=== PATIENT | female | born 1950 | race Caucasian/White ===

== ENCOUNTER 2017-03-27 21:10 | Emergency (ER) | payer BC, MEDICARE ==
[2017-03-27 21:18] VITALS: BP 136/94; RESP 20; TEMP 98
[2017-03-27] MEDS ORDERED: ORPHENADRINE 30 MG/ML 2 ML VIAL IM STA (21:36)
[2017-03-27] MEDS ORDERED: KETOROLAC 30 MG/ML 1 ML VIAL IM STA (21:36)
[2017-03-27] MEDS ORDERED: HYDROcodone/APAP 5-325MG 1 EACH TAB PO STA (21:36)
--- NOTE | 2017-03-27 21:40 | ED ---
Back Pain HPI - General Chief Complaint: Back Pain/Injury Stated Complaint: Back pain Time Seen by Provider: 03/27/17 21:19 Source: patient Limitations: no limitations - History of Present Illness Initial Comments: 67-year-old female patient presented to the emergency department today for complaints of lower back pain with radiation on the left leg. Patient states that she does have a history of arthritis, degenerative disc disease, and sciatica. States that her symptoms have been noted present for the last 4 months. States that she's been having trouble with sciatica on and off since 2014. She denies any new symptoms. States they're just getting worse. She states that she has been seeing a chiropractor for the last few weeks but it is not helping. She does have an appointment with a pain management and medical insurance coding specialist Dr. Adames on Thursday. States that she does need some pain medication to get her through until then. She denies any numbness or tingling in her legs. Denies any loss of bowel or bladder control. Denies any saddle anesthesia. She denies any injuries causing an increase of the pain. Patient denies any recent rash, fever, chills, shortness breath, chest pain, abdominal pain, nausea, vomiting, diarrhea, constipation, dizziness, weakness, hematuria, dysuria, urinary urgency, urinary frequency, headache, visual changes, or any other complaints. - Related Data Home Medications Medication Instructions Recorded Confirmed Levothyroxine Sodium [Synthroid] 1 tab PO DAILY 12/29/15 12/29/15 Previous Rx's Medication Instructions Recorded Ibuprofen [Motrin] 800 mg PO Q8HR PRN #12 tab 12/29/15 Cyclobenzaprine [Flexeril] 10 mg PO TID #15 tab 03/27/17 Hydrocodone/Acetaminophen [[place] 1 tab PO Q6HR PRN #15 tab 03/27/17 5-325] Allergies Allergy/AdvReac Type Severity Reaction Status Date / Time No Known Allergies Allergy Verified 03/27/17 21:18 Review of Systems ROS Statement: Those systems with pertinent positive or pertinent negative responses have been documented in the HPI. ROS Other: All systems not noted in ROS Statement are negative. Past Medical History Past Medical History: Syncope Additional Past Medical History / Comment(s): arthritis History of Any Multi-Drug Resistant Organisms: None Reported Past Surgical History: Bladder Surgery, Cholecystectomy, Hysterectomy, Orthopedic Surgery, Tonsillectomy Past Psychological History: No Psychological Hx Reported Smoking Status: Current every day smoker Past Alcohol Use History: Rare Past Drug Use History: None Reported General Exam Limitations: no limitations General appearance: alert, in no apparent distress, other (This is a well- developed, well-nourished female patient no acute distress. Vital signs upon presentation were temperature 98.0F, pulse 113, respirations 20, blood pressure 136/94, pulse ox 97% on room air.) Eye exam: Present: normal appearance, PERRL, EOMI. Absent: scleral icterus, conjunctival injection, periorbital swelling Respiratory exam: Present: normal lung sounds bilaterally. Absent: respiratory distress, wheezes, rales, rhonchi, stridor Cardiovascular Exam: Present: regular rate, normal rhythm, normal heart sounds. Absent: systolic murmur, diastolic murmur, rubs, gallop, clicks GI/Abdominal exam: Present: soft, normal bowel sounds. Absent: distended, tenderness, guarding, rebound, rigid Extremities exam: Present: normal inspection, full ROM, normal capillary refill , other (Skin to the lower extremities is pink, warm, and dry. Cap refill less than 3 seconds. Post tibial pulses are 2+ and equal bilaterally. Patient has good strength in the lower extremities 5/5.). Absent: tenderness, pedal edema, joint swelling, calf tenderness Back exam: Present: normal inspection. Absent: vertebral tenderness, rash noted Neurological exam: Present: alert, oriented X3, CN II-XII intact Psychiatric exam: Present: normal affect, normal mood Skin exam: Present: warm, dry, intact, normal color. Absent: rash Course Vital Signs 03/27/17 21:13 Temperature 98 F Pulse Rate 113 H Respiratory 20 Rate Blood Pressure 136/94 O2 Sat by Pulse 97 Oximetry Medical Decision Making - Medical Decision Making 67-year-old female patient presented to the emergency department today for evaluation of low back pain with sciatica to the left side. Physical examination was unremarkable. Neurovascular status was intact. Patient is neurologically intact. She has good strength in her lower extremities. Patient does have a history of chronic low back pain with arthritis, degenerative disc disease, and history of sciatica. She denies any new symptoms. States it hurts current symptoms are consistent with her chronic pain pattern. She does have an appointment with Dr. jimena harvey on Thursday for further evaluation. She will be given IM injections of Toradol, Norflex and [place] orally here in the department. She'll be given a prescription for Flexeril and [place] to get her through until Thursday. She is instructed to return here immediately if her symptoms change, worsen, or if they develop any new symptoms. She verbalizes understanding and agrees with this plan. Disposition Clinical Impression: Sciatica, Chronic low back pain Disposition: HOME SELF-CARE Condition: Good Instructions: Sciatica (ED), Chronic Back Pain (ED) Additional Instructions: Use warm moist heat to the lower back. Take medications as directed. Keep your appointment with Dr. Adames as you have planned. Return here immediately for any new, worsening, or concerning symptoms. Prescriptions: Cyclobenzaprine [Flexeril] 10 mg PO TID #15 tab Hydrocodone/Acetaminophen [[place] 5-325] 1 tab PO Q6HR PRN #15 tab PRN Reason: Pain Referrals: Shane Perry MD [Primary Care Provider] - 1-2 days Stephen Adames MD [STAFF PHYSICIAN] - 1-2 days Time of Disposition: 21:40
[2017-03-27 22:02] VITALS: PULSE 99
== END 2017-03-27 22:03 | disposition home or self-care (01) ==
LOC: EC 21:10
DX: M54.32 Sciatica, left side (principal); M54.5 Low back pain; G89.29 Other chronic pain; F17.200 Nicotine dependence, unspecified, uncomplicated; Z79.899 Other long term (current) drug therapy
CPT/HCPCS: 99283; 96372 ×2; J2360; J1885

== ENCOUNTER → 2017-04-27 | Outpatient (CLI) | payer MEDICARE ==
[2017-04-27 14:19] LABS: Appearance,Urine Cloudy (Clear); Bacteria,Urine Rare /hpf; Bilirubin,Urine Negative (Negative); Blood,Urine Negative (Negative); Color,Urine Yellow; Glucose,Urine (UA) Trace (Negative); Hyaline Casts,Urine 2 /lpf (0-2); Ketones,Urine Negative (Negative); Leukocyte Esterase,Urine Negative (Negative); Mucus,Urine Moderate /hpf; Nitrite,Urine Negative (Negative); Protein,Urine 1+ (Negative); RBC,Urine <1 /hpf (0-5); Specific Gravity,Urine 1.019 (1.001-1.035); Squamous Epithelial Cell,Urine 1 /hpf (0-4); WBC,Urine 1 /hpf (0-5)
[2017-04-27 14:20] LABS: Basophils # (A) 0.1 k/uL (0-0.2); Basophils % (A) 1 %; Eosinophils # (A) 0.1 k/uL (0-0.7); Eosinophils % (A) 2 %; HCT 53.8 % (34.0-46.0); HGB 17.4 gm/dL (11.4-16.0); Lymphocytes # (A) 2.2 k/uL (1.0-4.8); Lymphocytes % (A) 33 %; MCH 34.6 pg (25.0-35.0); MCHC 32.3 g/dL (31.0-37.0); MCV 106.9 fL (80.0-100.0); Macrocytosis Moderate; Mean Platelet Volume 7.7; Monocytes # (A) 0.4 k/uL (0-1.0); Monocytes % (A) 6 %; Neutrophils # (A) 3.8 k/uL (1.3-7.7); Neutrophils % (A) 56 %; Platelet Count 231 k/uL (150-450); RBC 5.03 m/uL (3.80-5.40); RDW 12.7 % (11.5-15.5); WBC 6.7 k/uL (3.8-10.6)
[2017-04-27 14:33] LABS: Anion Gap 9 mmol/L; Blood Urea Nitrogen 12 mg/dL (7-17); Calcium 10.2 mg/dL (8.4-10.2); Carbon Dioxide 30 mmol/L (22-30); Chloride 104 mmol/L (98-107); Glucose 140 mg/dL (74-99); Potassium 5.1 mmol/L (3.5-5.1); Sodium 143 mmol/L (137-145)
[2017-04-27 14:50] LABS: Prothrombin Time 9.9 sec (9.0-12.0)
--- NOTE | 2017-04-27 14:51 | XR ---
EXAMINATION TYPE: XR chest 2V DATE OF EXAM: 04/27/2017 COMPARISON: NONE TECHNIQUE: PA and lateral views submitted. HISTORY: Presurgical FINDINGS: The lungs are clear and there is no pneumothorax, pleural effusion, or focal pneumonia. Hypertrophi c and degenerative change of the spine noted. Heart is mildly prominent. IMPRESSION: 1. No acute process.
[2017-04-27 14:58] LABS: Partial Thromboplastin Time 21.5 sec (22.0-30.0)
== END | disposition home or self-care (01) ==
LOC: LABPAT 13:17
PROVIDERS: ATTEND Orthopaedic Surgery Orthopaedic Surgery of the Spine
DX: Z01.818 Encounter for other preprocedural examination (principal); Z01.812 Encounter for preprocedural laboratory examination; M51.27 Other intervertebral disc displacement, lumbosacral region
CPT/HCPCS: 36415; 71046; 80048; 81001; 85025; 85610; 85730; 86850; 86900; 86901; 87070; 93005

== ENCOUNTER → 2017-05-26 | Outpatient (CLI) | payer MEDICARE ==
[2017-05-26 15:24] LABS: Basophils # (A) 0.1 k/uL (0-0.2); Basophils % (A) 1 %; Eosinophils # (A) 0.2 k/uL (0-0.7); Eosinophils % (A) 3 %; HCT 50.1 % (34.0-46.0); HGB 16.5 gm/dL (11.4-16.0); Lymphocytes # (A) 2.9 k/uL (1.0-4.8); Lymphocytes % (A) 36 %; MCH 34.2 pg (25.0-35.0); MCHC 32.9 g/dL (31.0-37.0); MCV 104.1 fL (80.0-100.0); Macrocytosis Slight; Mean Platelet Volume 7.7; Monocytes # (A) 0.5 k/uL (0-1.0); Monocytes % (A) 6 %; Neutrophils # (A) 4.4 k/uL (1.3-7.7); Neutrophils % (A) 53 %; Platelet Count 230 k/uL (150-450); RBC 4.82 m/uL (3.80-5.40); RDW 12.7 % (11.5-15.5); WBC 8.3 k/uL (3.8-10.6)
[2017-05-26 15:26] LABS: Appearance,Urine Cloudy (Clear); Bacteria,Urine Rare /hpf; Bilirubin,Urine Negative (Negative); Blood,Urine Negative (Negative); Color,Urine Yellow; Glucose,Urine (UA) Trace (Negative); Ketones,Urine Negative (Negative); Leukocyte Esterase,Urine Negative (Negative); Mucus,Urine Many /hpf; Nitrite,Urine Negative (Negative); PH, Urine 5.5 (5.0-8.0); Protein,Urine Trace (Negative); RBC,Urine 1 /hpf (0-5); Specific Gravity,Urine 1.015 (1.001-1.035); Squamous Epithelial Cell,Urine 1 /hpf (0-4); Urobilinogen,Urine <2.0 mg/dL (<2.0); WBC,Urine 3 /hpf (0-5)
[2017-05-26 15:34] LABS: Prothrombin Time 9.8 sec (9.0-12.0)
[2017-05-26 16:05] LABS: Partial Thromboplastin Time 21.6 sec (22.0-30.0)
== END | disposition home or self-care (01) ==
LOC: LABPAT 14:53
PROVIDERS: ATTEND Orthopaedic Surgery Orthopaedic Surgery of the Spine
DX: Z01.812 Encounter for preprocedural laboratory examination (principal); M51.27 Other intervertebral disc displacement, lumbosacral region
CPT/HCPCS: 36415; 81001; 85025; 85610; 85730

== ENCOUNTER 2017-06-01 11:14 | Day surgery (SDC) | payer MEDICARE ==
[2017-05-21 16:10] VITALS: BMI 32.8
[~2017-06-01 11:14] MED LIST: BACITRACIN 50,000 UNIT, POLYMYXIN B 500,000 UNIT in SODIUM CHLORIDE 0.9% IRRIGATIO 1,00... IRRIGATION ONE; DEXAMETHASONE SOD PHOSPHATE 10 MG/ML 1 ML VIAL IV ONE; HYDROmorphone 0.5 MG/0.5 ML SYRINGE IVP PRN; ONDANSETRON 4 MG/2 ML VIAL IVP ONE; ceFAZolin IN SWFI 2 GM/20 ML SYRINGE IVP ONE
[2017-06-01] MEDS ORDERED: LIDOCAINE 1% 20 ML VIAL (10MG/ML) FOR IV START INTRADERMA ONE (12:15)
[2017-06-01] MEDS: LACTATED RINGERS 1,000 ML IV SCH (12:15)
[2017-06-01] MEDS ORDERED: MIDAZOLAM 2 MG/2 ML VIAL ONE (12:49)
[2017-06-01] MEDS ORDERED: LIDOCAINE 1% INJ 10MG/ML (20 ML MDV) ONE (12:49)
[2017-06-01] MEDS ORDERED: fentaNYL (PF) 50 MCG/ML 2 ML AMP ONE (12:49)
[2017-06-01] MEDS ORDERED: SUCCINYLCHOLINE CHLORIDE 100 MG/5 ML SYR IV ONE (12:49)
[2017-06-01] MEDS ORDERED: PROPOFOL 10 MG/ML 20 ML VIAL IV ONE (12:49)
[2017-06-01] MEDS ORDERED: LIDOCAINE 0.5% (PF) 5 MG/ML (50 ML SDV) SQ ONE ×2 (13:15)
[2017-06-01] MEDS ORDERED: GELATIN SPONGE,ABSORB (LARGE) 1 EACH SPONGE TOPICAL ONE (13:27)
[2017-06-01] MEDS ORDERED: methylPREDNISolone ACETATE 80 MG/ML 1 ML VIAL INTRAARTIC ONE (13:27)
[2017-06-01] MEDS ORDERED: LACTATED RINGERS 1,000 ML IV ONE ×2 (13:45)
--- NOTE | 2017-06-01 13:47 | XR ---
EXAM TYPE: LUMBAR SPINE X RAY SERIES COMPARISON: NONE HISTORY: Intraoperative localization TECHNIQUE: One view is submitted. FINDINGS: Exam limited by intraoperative image and technique and resolution. There is a metallic instrument ove rlying the posterior margin of the lower lumbosacral spine correlate clinically for exact location. E xam 2 Limited to be definitive. IMPRESSION: 1. Intraoperative localization
--- NOTE | 2017-06-01 13:53 | FL ---
EXAMINATION TYPE: FL guidance operating room DATE OF EXAM: 06/01/2017 HISTORY: Flouroscopy time 3 seconds of fluoroscopy provided. IMPRESSION: 1. Fluoroscopy time.
[2017-06-01] MEDS ORDERED: DIAZEPAM 5 MG TAB PO PRN (14:18)
[2017-06-01] MEDS ORDERED: HYDROcodone/APAP 5-325MG 1 EACH TAB PO PRN (14:18)
[2017-06-01] MEDS ORDERED: MORPHINE SULFATE 4 MG/ML SYRINGE IVP PRN (14:18)
[2017-06-01] MEDS ORDERED: BENZOCAINE/MENTHOL LOZENG 1 EACH LOZENGE MUCOUS MEM PRN (14:18)
[2017-06-01] MEDS ORDERED: MAGNESIUM HYDROXIDE 2,400 MG/10 ML CUP PO PRN (14:18)
[2017-06-01] MEDS ORDERED: IBUPROFEN 600 MG TAB PO PRN (14:18)
[2017-06-01] MEDS ORDERED: TRIMETHOBENZAMIDE 100 MG/ML 2 ML VIAL IM PRN (14:18)
--- NOTE | 2017-06-01 14:23 | P.OP ---
Date of Procedure: 06/01/17 Preoperative Diagnosis: Herniated Nucleus pulposis L5-S1 Lower extremity radiculopathy Postoperative Diagnosis: Same Anesthesia: GETA Pathology: none sent Condition: stable Disposition: PACU Description of Procedure: BRIEF OPERATIVE NOTE Preoperative Diagnosis: Herniated nucleus pulposus L5-S1, left extremity radiculopathy, degenerative disc disease Postoperative Diagnosis: Same Procedure: Laminectomy and decompression L5-S1 Discectomy for decompression L5-S1 Use of fluoroscopic guidance Surgeon: Dr. Jones Director Of Planning: Ralf Lee is present throughout the entire the case persistence during positioning, dissection, exposure, visualization, and all crucial elements of the case as well as closure. Anesthesia: General anesthesia Estimated blood loss: Approximately 50 mL Complications: None apparent Components implanted: None Disposition: To recovery room in good stable condition. OPERATIVE INDICATIONS The patient has been having issues in their lower back and lower extremities. She has known have some degenerative changes at her lumbar spine with degenerative disc disease some facet arthrosis. She had new pain at her left lower extremity over an S1 distribution was found have a new disc herniation at L5-S1 which correlated well with these new symptoms. The patient was having worsening pain despite aggressive conservative treatment. She was having significant debility which had been worsening for her despite her treatment. The patient has been through conservative treatment. We discussed various treatment options including surgery, and the patient wishes to proceed with surgery We discussed the risk, patient's alternatives and benefits of surgery including but not limited to, risk of bleeding risk of infection, risk of need for further surgery, risk of decreased, loss of motion, loss of function, nerve damage, paralysis, heart attack, blindness and . OPERATIVE SUMMARY After discussing all the risks, patient alternatives and benefits at length, the patient elected to proceed with surgical intervention, signed informed consent, and presented for their procedure. The patient was seen and examined in the preoperative holding area and the surgical site was marked. The patient was given antibiotics and brought to the operating room. The patient was sedated and intubated by anesthesia in standard fashion. The patient was positioned on to the operating room table in a prone position on the appropriate frame which was well-padded and well molded. We were careful to pad any bony prominences and pressure points. We were careful to maintain the patient's cervical spine and good neutral alignment and position throughout. The patient was prepped and draped in a normal standard fashion. An appropriate timeout and keystone protocol performed. We were able to proceed with the surgery. Fluoroscopy was utilized to establish the appropriate level of L5-S1. The local wound area was infiltrated with local anesthetic. An incision was made at the midline longitudinally over the appropriate levels at L5-S1. Dissection was taken down subcutaneously to the level of the fascia which was split midline. Dissection was taken over the lamina. Intraoperative fluoroscopy was taken which showed a marker at the appropriate level at L5-S1. With the appropriate level positively confirmed, we were able to proceed with laminectomy. The wound was copiously irrigated and suctioned dry as had been done periodically throughout the case. I performed a laminectomy with a combination of curettes and a high-speed bur and Kerrison rongeurs. A small medial facetectomy was performed again further access. A partial foraminotomy was also performed. Portions of the ligamentum flavum were taken down to expose the dura and traversing nerve root. I was able to mobilize the traversing nerve root and gain access to the disc space. Note was made of obvious compression from the disc. There was also a component of hard disc and posterior osteophytic spur causing compression as well. Protecting the soft tissue structures, a small annulotomy was established. I was able to perform discectomy and remove any extruded disc fragments and any loose fragments from within the disc itself. There is some disc desiccation noted. I tried to preserve the disc annulus that appeared stable. There were no further extruded fragments noted. There is no evidence of dural tear or leak. Some of the posterior spur was taken down piecemeal as well. Good hemostasis maintained. The wound was copiously irrigated and suctioned dry. Good decompression and discectomy was noted. We were able to proceed with closure. The fascia was closed for a watertight closure. The subcuticular tissue was closed with absorbable suture. The wound was cleaned and dried and dressed with the appropriate dressing. The drapes were broken down. The patient was gently rolled back onto their hospital bed being careful to maintain their cervical spine and good neutral alignment and position. They were woken up by anesthesia, extubated, and brought to the recovery room in good stable condition. The patient will be admitted to the hospital for observation and for appropriate postoperative care, medical management and monitoring. We will continue to follow them closely about the postoperative course.
[2017-06-01] MEDS ORDERED: MORPHINE SULFATE 4 MG/ML SYRINGE IVP ONE (14:34)
[2017-06-01] MEDS: SODIUM CHLORIDE 0.9% 1,000 ML IV SCH (15:14)
[2017-06-01 16:26] VITALS: RESP 16
[2017-06-01] MEDS: HYDROcodone/APAP 5-325MG 1 EACH TAB PO PRN (20:24)
[2017-06-01] MEDS: ceFAZolin IN SWFI 2 GM/20 ML SYRINGE IVP SCH (21:23)
[2017-06-02] MEDS: HYDROcodone/APAP 5-325MG 1 EACH TAB PO PRN ×2 (00:46→07:25)
[2017-06-02] MEDS: SODIUM CHLORIDE 0.9% 1,000 ML IV SCH (05:12)
[2017-06-02] MEDS: LACTATED RINGERS 1,000 ML IV SCH (05:12)
[2017-06-02] MEDS: ceFAZolin IN SWFI 2 GM/20 ML SYRINGE IVP SCH (05:12)
[2017-06-02 08:03] VITALS: BP 149/66; PULSE 67; TEMP 97.8
[2017-06-02] MEDS ORDERED: SENNOSIDES-DOCUSATE SODIUM 1 EACH TAB PO SCH (09:00)
== END 2017-06-02 13:30 | disposition home or self-care (01) ==
LOC: OR 11:14 → 5MS5E 14:51 → OR 06-02 13:30
PROVIDERS: ATTEND Orthopaedic Surgery Orthopaedic Surgery of the Spine
DX: M51.17 Intervertebral disc disorders with radiculopathy, lumbosacral region (principal); M47.26 Other spondylosis with radiculopathy, lumbar region; M47.27 Other spondylosis with radiculopathy, lumbosacral region; M48.061 Spinal stenosis, lumbar region without neurogenic claudication; E03.9 Hypothyroidism, unspecified; M19.90 Unspecified osteoarthritis, unspecified site; Z72.0 Tobacco use; Z79.1 Long term (current) use of non-steroidal anti-inflammatories (NSAID); Z79.899 Other long term (current) drug therapy
CPT/HCPCS: 97162; 86900; 86901; 84132; 86850; 72020; 63047; J2250; J2270; J1040; J2405; J2001 ×2; J3010; J0330; J2704; J0690 ×2

== ENCOUNTER → 2020-07-24 | Outpatient (CLI) | payer MEDICARE ==
[2020-07-24 14:17] LABS: African American GFR (CKD) >90 (>60 ml/min/1.73 sqM); Anion Gap 6 mmol/L; Blood Urea Nitrogen 13 mg/dL (7-17); Carbon Dioxide 30 mmol/L (22-30); Chloride 105 mmol/L (98-107); Non-African American GFR(CKD) >90 (>60 ml/min/1.73 sqM); Potassium 4.8 mmol/L (3.5-5.1); Sodium 141 mmol/L (137-145)
[2020-07-24 14:23] LABS: Basophils # (A) 0.1 k/uL (0-0.2); Basophils % (A) 1 %; Eosinophils # (A) 0.2 k/uL (0-0.7); Eosinophils % (A) 3 %; HCT 48.1 % (34.0-46.0); HGB 16.6 gm/dL (11.4-16.0); Lymphocytes # (A) 2.2 k/uL (1.0-4.8); Lymphocytes % (A) 32 %; MCH 35.7 pg (25.0-35.0); MCHC 34.5 g/dL (31.0-37.0); MCV 103.6 fL (80.0-100.0); Macrocytosis Slight; Mean Platelet Volume 7.7; Monocytes # (A) 0.4 k/uL (0-1.0); Monocytes % (A) 5 %; Neutrophils # (A) 3.9 k/uL (1.3-7.7); Neutrophils % (A) 58 %; Platelet Count 221 k/uL (150-450); RBC 4.64 m/uL (3.80-5.40); RDW 13.1 % (11.5-15.5); WBC 6.8 k/uL (3.8-10.6)
== END | disposition home or self-care (01) ==
LOC: LABPAT 13:44
PROVIDERS: ATTEND Surgery
DX: Z01.812 Encounter for preprocedural laboratory examination (principal); I70.209 Unspecified atherosclerosis of native arteries of extremities, unspecified extremity
CPT/HCPCS: 36415; 80051; 82565; 84520; 85025

== ENCOUNTER → 2020-07-31 | Day surgery (SDC) | payer MEDICARE ==
[2020-07-26 16:54] VITALS: BMI 31.7
[~2020-07-31] MED LIST changes: -BACITRACIN 50,000 UNIT, POLYMYXIN B 500,000 UNIT in SODIUM CHLORIDE 0.9% IRRIGATIO 1,00... IRRIGATION ONE; -DEXAMETHASONE SOD PHOSPHATE 10 MG/ML 1 ML VIAL IV ONE; -HYDROmorphone 0.5 MG/0.5 ML SYRINGE IVP PRN; +IOPAMIDOL-250 100ML BTL INTRAARTER ONE; +LIDOCAINE 1% INJ 10MG/ML (20 ML MDV) ONE; +LIDOCAINE 1% INJ 10MG/ML (20 ML MDV) SQ ONE; +MIDAZOLAM 2 MG/2 ML VIAL IV ONE; -ONDANSETRON 4 MG/2 ML VIAL IVP ONE; +SODIUM CHLORIDE 0.9% 1,000 ML IV ONE; -ceFAZolin IN SWFI 2 GM/20 ML SYRINGE IVP ONE; +fentaNYL (PF) 50 MCG/ML 2 ML AMP IV ONE; +fentaNYL (PF) 50 MCG/ML 2 ML AMP ONE
[2020-07-31 07:05] VITALS: RESP 16; TEMP 98.7
--- NOTE | 2020-07-31 09:37 | P.OP ---
Preoperative Diagnosis: Preoperative diagnosis: [place] 3 peripheral arterial disease, this elevated claudication, PAD Postoperative diagnosis: Same Procedure: [#1 ultrasound guided left common femoral artery access #2 abdominal aortogram with runoffs #3 selective right lower extremity angiogram second order #4 moderate conscious sedation time 19 minutes] Surgeon: Migdalia Murphy D.O. EBL: [Less than 10 mL] IV fluids: [See records] Urine output: [Not measured] Drains: [None] Complications: [None immediately apparent] Condition: [Stable to recovery] Operative indication and findings: [The patient is a 70-year-old female with lifestyle limiting claudication that she can only walk about 100 or so feet prior to having pain. She has stopped going to get her mail as regularly due to this pain. It is causing her to not do all the activities she enjoys. She was found to have abnormal imaging on arterial Doppler therefore was suggested she undergo a angiogram. Risks and benefits were discussed, she seemingly understood and was willing to proceed as such.] Procedure in detail: [The patient was taken to the special suite and placed in supine position. Bilateral groins are prepped and draped in usual sterile fashion. A preprocedure timeout performed, all parties were in agreement. The ultrasound was utilized and the left common femoral artery was identified. The skin overlying was anesthetized 1% lidocaine plain. A multipurpose needle was used and the common femoral artery was accessed. Seldinger technique was used and a 5-Sudanese sheath was placed. Catheter was placed into the descending thoracic aorta and an angiogram was performed. The cath was brought down the level of the bifurcation and a lower extremity runoff was performed. Catheters and wires were used access the right external iliac artery and a selective right lower extremity angiogram was performed with angles to identify the takeoff of the superficial femoral artery. Catheters and wires were removed and pressure was held until hemostasis was adequate. The aorta appears normal in course and caliber. Visual his portions of the celiac and superior mesenteric artery are patent without significant disease. She has a left and right renal artery that are patent without significant disease. Multiple lumbar arteries are identified. The bilateral common, i nternal and external iliac arteries are patent without significant disease. On the right her common femoral artery is patent with an area of high-grade stenosis at the mid femoral artery. The profunda is patent without significant disease. The superficial femoral artery is occluded shortly after its takeoff and reconstitutes at the level of the popliteal artery. There is three-vessel patency at the trifurcation, the anterior tibial artery is difficult to follow down to the mid calf. There appears to be a patent posterior tibial and peroneal artery at the ankle. On the left the common femoral artery and profunda are patent without significant disease. The superficial femoral artery is patent with diffuse areas of modest disease. There is a chronic total occlusion at the level of the abductors canal with reconstitution of the popliteal artery. There is three- vessel at the takeoff but again very difficult to follow likely due to decreased contrast flow.] Plan - Discharge Summary Discharge Rx Participant: No New Discharge Prescriptions: No Action Levothyroxine Sodium [Synthroid] 88 mcg PO QAM Ibuprofen [Motrin] 800 mg PO Q8HR PRN #12 tab PRN Reason: Pain Atorvastatin [Lipitor] 40 mg PO HS Discharge Medication List Ibuprofen [Motrin] 800 mg PO Q8HR PRN #12 tab 12/29/15 [Rx] Levothyroxine Sodium [Synthroid] 88 mcg PO QAM 12/29/15 [History] Atorvastatin [Lipitor] 40 mg PO HS 07/26/20 [History] Follow up Appointment(s)/Referral(s): Migdalia Murphy DO [STAFF PHYSICIAN] - 08/08/20 9:15 am (ThuAugust 08 at 9:15 PM ) Patient Instructions/Handouts: Angiogram (DC), Procedural Sedation (ED) Activity/Diet/Wound Care/Special Instructions: no driving for two days. Avoid heavy lifting greater than 10 lbs , pushing, pulling, straining, flights of stairs for two days. ok to shower tomorrow but no baths, pools, soaking in tubs for three days to avoid risk of infection. signs of infection ie: fever, rash, drainage from puncture site, swelling contact doctor or return to ER immediately. Heavy bleeding from puncture site apply firm direct pressure and return to ER. Do not attempt to drive self. low sodium/low fat diet Medications as directed by Dr Murphy
--- NOTE | 2020-07-31 10:08 | IR ---
Fluoroscopy HISTORY: Pain in bilateral legs 2.2 minutes fluoroscopy time supplied to the referring clinician. 90 intraoperative C-arm images doc ument the procedure. See dictated report from vascular surgery.
[2020-07-31 12:21] VITALS: BP 116/55; PULSE 56
== END ==
LOC: CATHCVL 06:22
PROVIDERS: ATTEND Surgery
DX: E11.51 Type 2 diabetes mellitus with diabetic peripheral angiopathy without gangrene (principal); I70.212 Atherosclerosis of native arteries of extremities with intermittent claudication, left leg; I65.29 Occlusion and stenosis of unspecified carotid artery; G45.8 Other transient cerebral ischemic attacks and related syndromes; Z20.822 Contact with and (suspected) exposure to COVID-19; Z72.0 Tobacco use; Z90.49 Acquired absence of other specified parts of digestive tract; Z90.89 Acquired absence of other organs; Z98.890 Other specified postprocedural states; Z82.5 Family history of asthma and other chronic lower respiratory diseases; Z83.3 Family history of diabetes mellitus; Z80.3 Family history of malignant neoplasm of breast; Z79.82 Long term (current) use of aspirin; Z79.890 Hormone replacement therapy; Z79.899 Other long term (current) drug therapy
CPT/HCPCS: 36246; 75625; 75716; 87635; C1769 ×2; C1894; J2250; J2001; Q9966

== ENCOUNTER 2020-08-22 11:09 | Day surgery (SDC) | payer MEDICARE ==
[2020-08-17 10:36] VITALS: BMI 32.0
[~2020-08-22 11:09] MED LIST changes: +HYDROmorphone 0.5 MG/0.5 ML SYRINGE IVP PRN; -IOPAMIDOL-250 100ML BTL INTRAARTER ONE; +LACTATED RINGERS 1,000 ML IV SCH; -LIDOCAINE 1% INJ 10MG/ML (20 ML MDV) ONE; -LIDOCAINE 1% INJ 10MG/ML (20 ML MDV) SQ ONE; -MIDAZOLAM 2 MG/2 ML VIAL IV ONE; +ONDANSETRON 4 MG/2 ML VIAL IVP ONE; -SODIUM CHLORIDE 0.9% 1,000 ML IV ONE; +SODIUM CHLORIDE 0.9% 1,000 ML in EMPTY BAG 1 BAG IV ONE; -fentaNYL (PF) 50 MCG/ML 2 ML AMP IV ONE; -fentaNYL (PF) 50 MCG/ML 2 ML AMP ONE
[2020-08-22] MEDS ORDERED: SODIUM CHLORIDE 0.9% 1,000 ML IV ONE (11:28)
[2020-08-22] MEDS ORDERED: diphenhydrAMINE 50 MG/ML 1 ML VIAL ONE (14:22)
[2020-08-22] MEDS ORDERED: MIDAZOLAM 2 MG/2 ML VIAL ONE (14:22)
[2020-08-22] MEDS ORDERED: fentaNYL (PF) 50 MCG/ML 2 ML AMP ONE (14:22)
[2020-08-22] MEDS ORDERED: LIDOCAINE 1% INJ 10MG/ML (20 ML MDV) SQ ONE (14:41)
[2020-08-22] MEDS ORDERED: IOPAMIDOL-250 100ML BTL INTRAARTER ONE (15:52)
--- NOTE | 2020-08-22 17:46 | P.OP ---
Date of Procedure: 08/22/20 Description of Procedure: Preoperative diagnosis: [Right superficial femoral artery occlusion, [place] 3 peripheral arterial disease] Postoperative diagnosis: Same Procedure: [#1 ultrasound guided left common femoral artery access #2 selective right lower extremity angiogram to the superficial femoral artery] Surgeon: Migdalia Murphy D.O. EBL: [Less than 10 mL] IV fluids: [See records] Urine output: [Not measured] Drains: [None] Complications: [None immediately apparent] Condition: [Stable to recovery] Operative indication and findings: [Patient is a 70-year-old female with lifestyle limiting claudication and known right superficial femoral artery occlusive disease of long segment risks and benefits were discussed and was planning to go forward with attempted right endovascular revascularization with the possibility of needing to go forward with a femoral to below-knee bypass] Procedure in detail: [The patient was taken to the special suite and placed in supine position. Bilateral groins are prepped and draped in usual sterile fashion. A preprocedure timeout was performed, all parties were in agreement. The ultrasound was utilized and the left common femoral artery was identified. The skin overlying was incised 1% lidocaine plain. Using a multipurpose needle the common femoral artery was accessed and Seldinger technique was used to place a 5-Russian sheath. Catheters and wires were used to gain access to the right iliac system. The wire was advanced into the level of the external iliac artery and an angiogram was performed at this level revealing the area of significant stenosis of the common femoral artery as well as the profunda and area of occlusion of the superficial femoral artery. The wire was advanced to the level of the profunda and exchanged for a stiff wire, a long Amber sheath was then placed. Repeat angiogram was performed and multiple attempts to advance the wire and catheter were performed and crossing the lesion. The umbilical level of the distal superficial femoral artery in a dissected plane but unable to regain luminal access at this area. I would point a catheter directed angiogram was performed in this area again revealing the dissection plane. After multiple attempts, this was abandoned. A repeat angiogram was performed revealing no evidence of perforation or extravasation. The catheter and wire removed. The sheath was pulled back over the bifurcation under visualization over a wire. The sheath was removed and pressure was held until hemostasis was adequate. The patient was transferred back to recovery in stable condition having tolerated her procedure well. She'll need a femoral to below-knee bypass] Plan - Discharge Summary Discharge Rx Participant: No New Discharge Prescriptions: No Action Ibuprofen [Motrin] 800 mg PO Q8HR PRN #12 tab PRN Reason: Pain Atorvastatin [Lipitor] 40 mg PO HS HYDROcodone/APAP 5-325MG [[place] 5-325] 1 tab PO Q8HR PRN PRN Reason: Pain Levothyroxine Sodium [Synthroid] 75 mcg PO DAILY Discharge Medication List Ibuprofen [Motrin] 800 mg PO Q8HR PRN #12 tab 12/29/15 [Rx] Atorvastatin [Lipitor] 40 mg PO HS 07/26/20 [History] HYDROcodone/APAP 5-325MG [[place] 5-325] 1 tab PO Q8HR PRN 08/17/20 [History] Levothyroxine Sodium [Synthroid] 75 mcg PO DAILY 08/17/20 [History] Activity/Diet/Wound Care/Special Instructions: No heavy lifting for 48 hours. Resume normal activity otherwise. Will plan for a femoral to below-knee bypass. Call my office next week if you have not heard regarding this scheduling. Discharge Disposition: HOME SELF-CARE
[2020-08-22 21:17] VITALS: BP 160/67; PULSE 53; RESP 22; TEMP 98.1
--- NOTE | 2020-08-23 08:10 | IR ---
EXAMINATION TYPE: IR angio lower extremity RT DATE OF EXAM: 08/22/2020 COMPARISON: NONE HISTORY: Fluoroscopy time. Fluoroscopy was provided to the referring clinician. 34.7 minutes of fluoroscopy provided.
== END 2020-08-22 22:24 | disposition home or self-care (01) ==
LOC: CATHCVL 11:09 → 6NMEDSUR 16:40 → CATHCVL 22:24
PROVIDERS: ATTEND Surgery
DX: E11.51 Type 2 diabetes mellitus with diabetic peripheral angiopathy without gangrene (principal); I65.29 Occlusion and stenosis of unspecified carotid artery; F17.210 Nicotine dependence, cigarettes, uncomplicated; M54.9 Dorsalgia, unspecified; Z79.899 Other long term (current) drug therapy; M19.90 Unspecified osteoarthritis, unspecified site; E78.5 Hyperlipidemia, unspecified; E07.9 Disorder of thyroid, unspecified; J44.9 Chronic obstructive pulmonary disease, unspecified; Z91.048 Other nonmedicinal substance allergy status
CPT/HCPCS: 36247; 75710; 76937; 84132; 87635; C1894 ×2; C1769 ×5; C1887; J2250; J1200; J2001; J3010; Q9966

== ENCOUNTER → 2020-09-04 | Outpatient (CLI) | payer MEDICARE ==
[2020-09-04 10:59] LABS: Basophils # (A) 0.1 k/uL (0-0.2); Basophils % (A) 1 %; Eosinophils # (A) 0.3 k/uL (0-0.7); Eosinophils % (A) 4 %; HGB 15.9 gm/dL (11.4-16.0); Lymphocytes # (A) 2.1 k/uL (1.0-4.8); Lymphocytes % (A) 26 %; MCH 35.8 pg (25.0-35.0); MCHC 33.8 g/dL (31.0-37.0); MCV 105.8 fL (80.0-100.0); Macrocytosis Moderate; Mean Platelet Volume 7.7; Monocytes # (A) 0.5 k/uL (0-1.0); Monocytes % (A) 6 %; Neutrophils % (A) 62 %; Platelet Count 235 k/uL (150-450); RBC 4.44 m/uL (3.80-5.40); RDW 13.2 % (11.5-15.5)
[2020-09-04 11:14] LABS: INR 0.9 (<1.2); Partial Thromboplastin Time 22.9 sec (22.0-30.0)
[2020-09-04 11:52] LABS: African American GFR (CKD) >90 (>60 ml/min/1.73 sqM); Anion Gap 9 mmol/L; Blood Urea Nitrogen 12 mg/dL (7-17); Carbon Dioxide 27 mmol/L (22-30); Chloride 105 mmol/L (98-107); Non-African American GFR(CKD) >90 (>60 ml/min/1.73 sqM); Potassium 4.6 mmol/L (3.5-5.1); Sodium 141 mmol/L (137-145)
== END | disposition home or self-care (01) ==
LOC: LABPAT 09:45
PROVIDERS: ATTEND Surgery
DX: Z01.812 Encounter for preprocedural laboratory examination (principal); I73.9 Peripheral vascular disease, unspecified; Z01.810 Encounter for preprocedural cardiovascular examination
CPT/HCPCS: 36415; 80051; 82565; 84520; 85025; 85610; 85730; 93005

== ENCOUNTER 2020-09-13 05:52 | Inpatient (IN) | payer MEDICARE ==
[2020-09-07 14:23] VITALS: BMI 32.0
[2020-09-13] MEDS ORDERED: DEXAMETHASONE SOD PHOSPHATE 4 MG/ML 1 ML VIAL IV ONE (06:02)
[2020-09-13] MEDS ORDERED: LIDOCAINE 1% (10MG/ML) FOR IV START INTRADERMA ONE (06:42)
[2020-09-13] MEDS: LACTATED RINGERS 1,000 ML IV SCH ×3 (06:42→23:26)
[2020-09-13] MEDS: ONDANSETRON 4 MG/2 ML VIAL IVP ONE ×2 (06:45→12:41)
[2020-09-13 06:52] LABS: Glucose,Whole Blood 159 mg/dL (75-99)
[2020-09-13 06:55] LABS: HCT 44.8 % (34.0-46.0); HGB 15.3 gm/dL (11.4-16.0); MCH 35.8 pg (25.0-35.0); MCHC 34.3 g/dL (31.0-37.0); MCV 104.5 fL (80.0-100.0); Macrocytosis Slight; Platelet Count 199 k/uL (150-450); RBC 4.28 m/uL (3.80-5.40); RDW 13.2 % (11.5-15.5); WBC 9.4 k/uL (3.8-10.6)
[2020-09-13] MEDS ORDERED: MIDAZOLAM 2 MG/2 ML VIAL IV ONE (07:09)
[2020-09-13 07:33] LABS: African American GFR (CKD) >90 (>60 ml/min/1.73 sqM); Anion Gap 7 mmol/L; Blood Urea Nitrogen 12 mg/dL (7-17); Calcium 9.9 mg/dL (8.4-10.2); Carbon Dioxide 27 mmol/L (22-30); Chloride 106 mmol/L (98-107); Glucose 171 mg/dL (74-99); Non-African American GFR(CKD) >90 (>60 ml/min/1.73 sqM); Potassium 4.3 mmol/L (3.5-5.1); Sodium 140 mmol/L (137-145)
[2020-09-13] MEDS ORDERED: NEOSTIGMINE 1 MG/ML 10 ML VIAL ONE (07:33)
[2020-09-13] MEDS ORDERED: PHENYLEPHRINE-0.9% NACL SYG 1,000 MCG/10 ML SYRINGE ONE (07:33)
[2020-09-13] MEDS ORDERED: PROPOFOL 10 MG/ML 20 ML VIAL IV ONE (07:33)
[2020-09-13] MEDS ORDERED: fentaNYL (PF) 50 MCG/ML 2 ML AMP ONE (07:33)
[2020-09-13] MEDS ORDERED: ROCURONIUM 10 MG/ML (5 ML VIAL) IV ONE (07:33)
[2020-09-13] MEDS ORDERED: SUCCINYLCHOLINE CHLORIDE 100 MG/5 ML SYR IV ONE (07:33)
[2020-09-13] MEDS ORDERED: GLYCOPYRROLATE 0.2 MG/ML 2 ML VIAL ONE (07:33)
[2020-09-13] MEDS ORDERED: HEPARIN SODIUM,PORCINE 10,000 UNIT/ML 1 ML VIAL ONE (07:33)
[2020-09-13] MEDS ORDERED: ESMOLOL 100 MG/10 ML VIAL ONE (07:33)
[2020-09-13] MEDS ORDERED: LIDOCAINE 1% INJ 10MG/ML (20 ML MDV) ONE (07:33)
[2020-09-13] MEDS ORDERED: NITROGLYCERIN-D5W PMX 50 MG in DEXTROSE/WATER 1 250ML.BAG IV SCH (08:00)
[2020-09-13] MEDS ORDERED: HEPARIN SODIUM,PORCINE 10,000 UNIT in SODIUM CHLORIDE 0.9% 1,000 ML IRRIGATION ONE (08:24)
[2020-09-13] MEDS ORDERED: LACTATED RINGERS 1,000 ML IV ONE ×2 (10:00→11:49)
[2020-09-13] MEDS ORDERED: GELATIN SPONGE,ABSORB (LARGE) 1 EACH SPONGE TOPICAL ONE (10:35)
[2020-09-13] MEDS ORDERED: THROMBIN (BOVINE) 5,000 UNIT VIAL TOPICAL ONE ×2 (10:35)
--- NOTE | 2020-09-13 12:37 | P.OP ---
Date of Procedure: 09/13/20 Description of Procedure: Preoperative diagnosis:[ Deanna 3 peripheral arterial disease superficial femoral artery occlusion with reconstitution of the popliteal P2 segment] Postoperative diagnosis: Same Procedure: [Right femoral endarterectomy with patch angioplasty Right femoral to below-knee popliteal bypass with CryoVein] Surgeon: Migdalia Murphy D.O. Systems Consultant: Harleen] EBL: [100 mL] IV fluids: [See records] Drains: [None] Urine output: [See records] Specimen: [Right femoral plaque] Complications: None Condition: Stable, extubated in the OR to PACU Operative indication and findings: The patient is a [70]-year-old male. [ She initially presented with severe claudication after minimal ambulation. Initially an angiogram was performed revealing bilateral superficial femoral artery occlusive disease worsen on the right than the left. Her entire superficial femoral artery appeared to be occluded to the P2 segment. Attempts were initially made to cross this long lesion endovascularly but were unsuccessful. She also was noted to have a piece of atherosclerotic disease in the common femoral artery therefore discussion was had and the plan was made to go forward with a bypass. She does not have long enough quality vein therefore CryoVein was utilized] Risks and benefits were discussed including but not limited to bleeding, infection, limb loss, heart attack, poor wound healing and . The patient seemingly understood and was willing to proceed. Procedure in detail: Patient taken to the operative suite placed in supine position and intubated. A Murphy catheter was placed. The abdomen and [right] lower extremity prepped and draped in usual sterile fashion. A preprocedure timeout was performed and all parties are in agreement. An oblique incision was made in the [right] groin with the scalpel. It was deepened through subcutaneous tissues with electrocautery. The encountered lymphatics were ligated and divided. The femoral sheath was opened sharply. The common femoral artery was dissected free circumferentially. The dissection was extended proximally to the level of the inguinal ligament, and distally to include the superficial femoral and profunda femoris arteries. They were encircled with vessel loops. Attention was then turned towards the below-knee incision. It was made in the medial condyle and deepened through the fascia with care to avoid the saphenous vein. The popliteal artery was identified the popliteal vein was retracted. Vessel loops were placed after careful circumferential dissection . The tunnel was placed At that point the patient was heparinized and ACT is were followed. Once heparinization was adequate, flow was occluded through the common femoral artery. An 11 blade was utilized and arteriotomy is made the Heredia-Beckham scissors was utilized to enlarge the arteriotomy. There was significant soft plaquing in the proximal artery therefore an endarterectomy was performed. Patch into plasty was performed bovine Patch and 6-0 Prolene. There was good inflow from the proximal artery at this time. An incision was made in the patch and enlarged with Heredia scissors. The CryoVein was anastomosis with a 6-0 Prolene. Blood was allowed to flow through the vein The vein was marked and then passed through the tunneler. At that point the arteriotomy of the popliteal segment was performed. The vein was cut to size and spatulated. Utilizing 7-0 Prolene an anastomosis was created. Hemostasis was achieved with interrupted sutures of 6-0 Prolene and Surgicel. At this point all anastomoses were completed and flow was resumed through the bypass graft. A Doppler was utilized to confirm multiphasic flow distally to the anastomosis as well as at the dorsalis pedis and anterior tibial arteries. The wound was copiously irrigated with antibiotic solution. The femoral sheath was reapproximated with interrupted sutures of 3-0 Vicryl. The subcuticular tissue was reapproximated with 3-0 Vicryl. The skin was reprepped with running sutures of 4-0 Monocryl. The popliteal fascia was reapproximated with 3-0 Vicryl. The subcutaneous tissues were reapproximated with 3-0 Vicryl and the skin along the length of the vein harvest was refractory with running 4-0 Monocryl in subcuticular fashion. Incisional wound VAC dressings was placed.
[2020-09-13] MEDS: HYDROmorphone 0.5 MG/0.5 ML SYRINGE IVP PRN ×2 (12:41→12:53)
[2020-09-13 13:05] LABS: Glucose,Whole Blood 217 mg/dL (75-99)
[2020-09-13] MEDS ORDERED: INSULIN ASPART (NovoLOG) 100 UNIT/ML VIAL SQ ONE (13:06)
[2020-09-13] MEDS ORDERED: HYDROcodone/APAP 5-325MG 1 EACH TAB PO PRN (13:43)
[2020-09-13 16:57] LABS: Glucose,Whole Blood 134 mg/dL (75-99)
[2020-09-13] MEDS: MORPHINE SULFATE 2 MG/ML SYRINGE IVP PRN ×2 (17:21→23:26)
[2020-09-13 20:45] LABS: Glucose,Whole Blood 198 mg/dL (75-99)
[2020-09-14] MEDS: MORPHINE SULFATE 2 MG/ML SYRINGE IVP PRN ×5 (02:45→19:01)
[2020-09-14 05:46] LABS: Glucose,Whole Blood 151 mg/dL (75-99)
[2020-09-14] MEDS: LACTATED RINGERS 1,000 ML IV SCH ×2 (06:55→11:39)
[2020-09-14 08:47] LABS: MCH 34.8 pg (25.0-35.0); MCHC 32.5 g/dL (31.0-37.0); MCV 107.1 fL (80.0-100.0); Macrocytosis Moderate; Mean Platelet Volume 8.2; Platelet Count 169 k/uL (150-450); RBC 3.73 m/uL (3.80-5.40); RDW 13.9 % (11.5-15.5); WBC 10.5 k/uL (3.8-10.6)
[2020-09-14] MEDS ORDERED: BENZOCAINE/MENTHOL LOZENG 1 EACH LOZENGE MUCOUS MEM PRN (09:56)
[2020-09-14 11:54] LABS: Glucose,Whole Blood 132 mg/dL (75-99)
[2020-09-14] MEDS: INSULIN ASPART (NovoLOG) 100 UNIT/ML VIAL SQ SCH ×3 (12:55→20:27)
[2020-09-14] MEDS: PANTOPRAZOLE 40 MG/10 ML VIAL IVP SCH (13:14)
--- NOTE | 2020-09-14 14:38 | P.DS ---
Providers Date of admission: 09/13/20 05:52 Expected date of discharge: 09/15/20 Attending physician: Migdalia Murphy DO Consults: 09/13/20 13:39 Consult Physician Routine Consulting Provider: Juan M Campoverde Consult Reason/Comments: md keita Do you want consulting provider notified?: Yes Primary care physician: Juan M Campoverde [facility] Course: This is a 70-year-old female who presented to the hospital for outpatient right femoral endarterectomy with patch angioplasty and right femoral to below-knee popliteal bypass with CryoVein for Taylor 3 peripheral arterial disease superficial femoral artery occlusion with reconstitution of the popliteal P2 segment. She has a past medical history of diabetes mellitus and former smoker. Incisional wound VAC dressing was placed. Assessment: The patient is postop day #1 for right femoral endarterectomy with patch angioplasty and right femoral to below-knee popliteal bypass with CryoVein. She is seen and examined lying in bed. Report some pain to the right lower extremity however manageable. Denies any acute changes through the night. She is afebrile. She is tolerating her diet. She has had some discordance in her blood pressure from her left upper extremity compared to her right upper extremity. Patient does state that she has had some intermittent numbness and tingling to the right arm and discomfort in her right shoulder for many years. Exam: General appearance: The patient is alert, oriented, in no acute distress. HET: Head is normocephalic and atraumatic. Neck: Supple without lymphadenopathy. Trachea midline. Heart: S1 S2. Regular rate and rhythm. Lungs: To auscultation. Abdomen: Soft, nontender, nondistended with bowel sounds. Extremities: Normal skin color and turgor. Right lower extremity with wound VAC dressing intact with good suction, good capillary refill, palpable dorsalis pedis pulse. Neurological: No focal deficits. Strength and sensation are grossly intact. Assessment: 1. Postop day #1 right femoral endarterectomy with patch angioplasty and right femoral to below-knee popliteal bypass with CryoVein 2. Relative per 3 peripheral arterial disease with superficial femoral artery occlusion with reconstitution of popliteal P2 segment 3. Diabetes mellitus 4. Former smoker Plan: 1. Continue with wound VAC dressing 7 days 2. Continue current medications 3. Diet as tolerated 4. Plan for discharge tomorrow with follow up in 1-2 weeks The impression and plan of care has been dictated as directed. Dr. Murphy I performed a history and examination of this patient, discussed the same with the dictator. I agree with the dictator's note ,documented as a scribe. Any additional findings or plans will be noted. Procedures: Right femoral endarterectomy with patch angioplasty and right femoral to below- knee popliteal bypass with CryoVein Plan - Discharge Summary Discharge Rx Participant: No New Discharge Prescriptions: Continue Ibuprofen [Motrin] 800 mg PO Q8HR PRN #12 tab PRN Reason: Pain Atorvastatin [Lipitor] 40 mg PO HS HYDROcodone/APAP 5-325MG [[place] 5-325] 1 tab PO Q8HR PRN PRN Reason: Pain Levothyroxine Sodium [Synthroid] 75 mcg PO DAILY Discharge Medication List Ibuprofen [Motrin] 800 mg PO Q8HR PRN #12 tab 12/29/15 [Rx] Atorvastatin [Lipitor] 40 mg PO HS 07/26/20 [History] HYDROcodone/APAP 5-325MG [[place] 5-325] 1 tab PO Q8HR PRN 08/17/20 [History] Levothyroxine Sodium [Synthroid] 75 mcg PO DAILY 08/17/20 [History] Follow up Appointment(s)/Referral(s): Nolvia [facility], [NON-STAFF] - Activity/Diet/Wound Care/Special Instructions: May shower, keep right lower extremity dry. No heavy lifting greater than 5-10 pounds. Activity as tolerated. Keep wound VAC dressing in place for 7 days. May be removed and discarded in 7 days.
--- NOTE | 2020-09-14 16:03 | P.CONS ---
History of Present Illness - Reason for Consult Consult date: 09/14/20 Medical management diabetes mellitus, nicotine dependence Requesting physician: Migdalia Murphy - Chief Complaint Peripheral arterial disease, femoral artery occlusion - History of Present Illness This is a 70-year-old female with past medical history of diabetes mellitus, including nicotine dependence admitted with peripheral arterial disease with femoral artery occlusion status post femoral artery endarterectomy with below- knee popliteal bypass. Tolerated procedure well. Denies chest pain, palpitations or shortness of breath. Patient had received a regular diet treated this morning and consumed 100%. Diet adjusted to consistent carb. Passing flatus, complains some mild tenderness. Past Medical History Past Medical History: Diabetes Mellitus, Osteoarthritis (OA), Pneumonia, Syncope, Thyroid Disorder, Vascular Disorder Additional Past Medical History / Comment(s): back pain,varicose veins,hx bronchitis,sciatica, new dx diabetes -diet control, sinus drainage, P.A.D. History of Any Multi-Drug Resistant Organisms: None Reported Past Surgical History: Back Surgery, Bladder Surgery, Cholecystectomy, Hysterectomy, Tonsillectomy Additional Past Surgical History / Comment(s): "tummy tuck", bladder susp., angiogram 08/22/20, back surgery for sciatic nerve, thu knee arthroscopy, cyst removed from rt wrist Past Anesthesia/Blood Transfusion Reactions: No Reported Reaction Smoking Status: Current every day smoker - Past Family History Mother Family Medical History: Cancer Additional Family Medical History / Comment(s): colon and breast,CABG, Father Additional Family Medical History / Comment(s): breathing problem Medications and Allergies Home Medications Medication Instructions Recorded Confirmed Type Ibuprofen [Motrin] 800 mg PO Q8HR PRN #12 tab 12/29/15 09/13/20 Rx Atorvastatin [Lipitor] 40 mg PO HS 07/26/20 09/13/20 History HYDROcodone/APAP 5-325MG [[place] 1 tab PO Q8HR PRN 08/17/20 09/13/20 History 5-325] Levothyroxine Sodium [Synthroid] 75 mcg PO DAILY 08/17/20 09/13/20 History Allergies Allergy/AdvReac Type Severity Reaction Status Date / Time nickel Allergy Rash/Hives Verified 09/13/20 06:26 Physical Exam Vitals: Vital Signs Temp Pulse Pulse Resp BP BP Pulse Ox 09/14/20 08:24 98 F 65 20 119/69 96 09/14/20 04:00 98.1 F 63 16 128/63 97 09/14/20 02:00 78 60 16 09/14/20 00:00 98.0 F 78 16 118/81 97 09/13/20 20:00 97.9 F 59 L 60 16 133/62 100 09/13/20 16:00 98.3 F 72 16 143/64 98 09/13/20 14:45 98.2 F 73 16 154/67 100 09/13/20 14:00 55 L 16 132/56 97 09/13/20 13:30 52 L 16 139/54 97 09/13/20 13:00 54 L 16 99/55 100 09/13/20 12:46 56 L 16 113/65 98 09/13/20 12:30 64 16 125/74 100 09/13/20 12:19 97.0 F L 67 16 107/75 98 Intake and Output 09/13/20 09/14/20 09/14/20 22:59 06:59 14:59 Intake Total 240 1200 Output Total 700 1650 Balance -460 -450 Intake: Intake, IV Titration 600 Amount Lactated Ringers 1,000 ml 600 @ 100 mls/hr IV .Q10H [facility] Rx#:[id number] Oral 240 600 Output: Urine 700 1650 Uretheral (Murphy) 350 Other: Voiding Method Indwelling Catheter Indwelling Catheter Weight 85.6 kg 91 kg PHYSICAL EXAM: VITAL SIGNS: [As above] GENERAL: Sitting up in bed, no acute distress HEENT: Conjunctivae normal. eyes normal. Oral mucosa moist NECK: No JVD. No thyroid enlargement. No LNs CARDIOVASCULAR: S1, S2 regular.. No murmur RESPIRATION: Breath sounds diminished in the bases. No rhonchi or crackles. No bronchial breathing. ABDOMEN: Soft, nontender . No guarding. no masses palpable. No ascites, No hepatosplenomegaly.Bowel sounds heard. LEGS: Right leg wound VAC dressing intact, extremity warm, positive DP pulse,no calf pain. PSYCHIATRY: Alert and oriented X3, mood and affect normal. NERVOUS SYSTEM: Cranial N 2-12 grossly normal. Moves all 4 limbs. No focal deficits. Strength and sensation grossly intact.. Skin: Warm and dry, no rash Lymphatic system. No LN neck axilla. Results CBC & Chem 7: 09/14/20 08:18 09/13/20 06:42 Labs: Abnormal Lab Results - Last 24 Hours (Table) 09/13/20 09/13/20 09/13/20 Range/Units 13:03 16:54 20:18 RBC (3.80-5.40) m/uL MCV (80.0-100.0) fL POC Glucose (mg/dL) 217 H 134 H 198 H (75-99) mg/dL 09/14/20 09/14/20 Range/Units 05:41 08:18 RBC 3.73 L (3.80-5.40) m/uL MCV 107.1 H (80.0-100.0) fL POC Glucose (mg/dL) 151 H (75-99) mg/dL Assessment and Plan Assessment: Peripheral arterial disease with superficial femoral artery occlusion with reconstitution of popliteal P2 segment, S/P right femoral endarterectomy with patch angioplasty and right femoral to below-knee popliteal bypass Diabetes mellitus Ongoing nicotine dependence Hypothyroidism Plan: Continue on current medication regime ,monitoring and symptomatic treatment. Diet adjusted to consistent carb. Close monitoring of Accu-Cheks with Sliding scale initiated. Home meds reviewed and resumed accordingly. Aggressive pulmonary toileting. Smoking cessation reinforced. Discharge planning in progress as per primary tomorrow. Follow-up with PCP Dr. Campoverde in 1 week after discharge. Thank you Dr. Murphy for the consult. The impression and plan of care has been dictated as directed. : I performed a history and examination of this patient, discussed the same with the dictator. I agree with the dictator's note ,documented as a scribe. Any additional findings or plans will be noted.
[2020-09-14 16:53] LABS: Glucose,Whole Blood 140 mg/dL (75-99)
[2020-09-14] MEDS: NICOTINE 21MG/24HR PATCH TRANSDERM SCH (19:02)
[2020-09-14 20:21] LABS: Glucose,Whole Blood 249 mg/dL (75-99)
[2020-09-14] MEDS: ATORVASTATIN 40 MG TAB PO SCH (20:34)
[2020-09-15 06:30] LABS: Glucose,Whole Blood 190 mg/dL (75-99)
[2020-09-15] MEDS: INSULIN ASPART (NovoLOG) 100 UNIT/ML VIAL SQ SCH ×4 (06:36→20:10)
[2020-09-15] MEDS: LEVOTHYROXINE 75 MCG TAB PO SCH (06:36)
[2020-09-15] MEDS: PANTOPRAZOLE 40 MG/10 ML VIAL IVP SCH (09:24)
[2020-09-15] MEDS: NICOTINE 21MG/24HR PATCH TRANSDERM SCH (09:25)
--- NOTE | 2020-09-15 11:37 | P.PN ---
Subjective Progress Note Date: 09/15/20 Postop day #2 status post right common femoral thromboendarterectomy and femoral to popliteal bypass. Objective - Vital Signs Vital signs: Vital Signs Temp 99.4 F 09/15/20 09:20 Pulse 89 09/15/20 09:20 Resp 16 09/15/20 09:20 BP 145/73 09/15/20 09:20 Pulse Ox 95 09/15/20 09:20 Intake & Output 09/14/20 09/15/20 09/15/20 18:59 06:59 18:59 Intake Total 1340 120 Output Total 350 1200 500 Balance 990 -1200 -380 Weight 89.1 kg Intake: Oral 1340 120 Output: Urine 350 1200 500 Other: Voiding Method Toilet Toilet Toilet # Voids 11 1 - Labs CBC & Chem 7: 09/14/20 08:18 09/13/20 06:42 Labs: Abnormal Lab Results - Last 24 Hours (Table) 09/14/20 09/14/20 09/14/20 Range/Units 11:52 16:51 20:21 POC Glucose (mg/dL) 132 H 140 H 249 H (75-99) mg/dL 09/15/20 Range/Units 05:50 POC Glucose (mg/dL) 190 H (75-99) mg/dL Assessment and Plan Assessment: Postop day #2 and a palpable liver sounds pedis pulse. There is no leg edema. Plan: #1: DC telemetry as patient has exhibited normal sinus rhythm. #2: Physical therapy for ambulation. Time with Patient: Less than 30
[2020-09-15 12:02] LABS: Glucose,Whole Blood 120 mg/dL (75-99)
[2020-09-15 16:46] LABS: Glucose,Whole Blood 164 mg/dL (75-99)
[2020-09-15] MEDS: ATORVASTATIN 40 MG TAB PO SCH (20:10)
[2020-09-15 20:11] LABS: Glucose,Whole Blood 159 mg/dL (75-99)
--- NOTE | 2020-09-15 20:49 | PN ---
PROGRESS NOTE DATE OF SERVICE: 09/15/2020. HISTORY OF PRESENT ILLNESS: This 70-year-old woman who was admitted, peripheral vascular disease, had reconstruction of popliteal P2 segment and femoral endarterectomy by Vascular Surgery. No chest pain. No palpitations. No fever. EXAM: Alert oriented x3. Pulse 74, blood pressure 130/69, respiration 16, temperature 98.8, pulse ox 98% room air. HEENT: Conjunctivae normal. Oral mucosa moist. RESPIRATORY: bases no rhonchi no crackles. ABDOMEN: Soft, nontender. LEGS: No edema, no swelling. NERVOUS SYSTEM: Nonfocal. LABS: Accu-Cheks 249, 191, 164. ASSESSMENT: 1. Peripheral vascular disease, status post right femoral endarterectomy with patch angioplasty and right femoral to below-knee popliteal bypass with cryo vein. 2. Diabetes type 2. 3. DJD. 4. History of pneumonia. 5. History of hypothyroidism. 6. History of back pain. 7. History of peripheral vascular disease. 9. History of cholecystectomy. 10.History of depression. 11.History of nicotine dependence. RECOMMENDATION AND DISCUSSION: Recommend to continue current management and treatment, otherwise monitor blood sugars closely. Incentive spirometry. DVT prophylaxis. Closely follow with vascular surgery. Further recommendations to follow. MMODL / IJN: [id number] / [id number]
[2020-09-16] MEDS: LEVOTHYROXINE 75 MCG TAB PO SCH (06:09)
[2020-09-16] MEDS: INSULIN ASPART (NovoLOG) 100 UNIT/ML VIAL SQ SCH ×2 (06:10→12:18)
[2020-09-16 06:29] LABS: Glucose,Whole Blood 147 mg/dL (75-99)
[2020-09-16 06:47] LABS: HCT 42.3 % (34.0-46.0); HGB 14.1 gm/dL (11.4-16.0); MCH 35.5 pg (25.0-35.0); MCHC 33.4 g/dL (31.0-37.0); MCV 106.2 fL (80.0-100.0); Macrocytosis Moderate; Mean Platelet Volume 8.3; Platelet Count 150 k/uL (150-450); RBC 3.98 m/uL (3.80-5.40); RDW 13.1 % (11.5-15.5); WBC 9.3 k/uL (3.8-10.6)
[2020-09-16 06:59] LABS: African American GFR (CKD) >90 (>60 ml/min/1.73 sqM); Anion Gap 4 mmol/L; Blood Urea Nitrogen 13 mg/dL (7-17); Carbon Dioxide 25 mmol/L (22-30); Chloride 107 mmol/L (98-107); Glucose 157 mg/dL (74-99); Non-African American GFR(CKD) >90 (>60 ml/min/1.73 sqM); Sodium 136 mmol/L (137-145)
[2020-09-16 07:07] LABS: Potassium 4.5 mmol/L (3.5-5.1)
[2020-09-16] MEDS: PANTOPRAZOLE 40 MG/10 ML VIAL IVP SCH (08:22)
[2020-09-16] MEDS: NICOTINE 21MG/24HR PATCH TRANSDERM SCH (08:22)
[2020-09-16 08:36] VITALS: BP 125/75; PULSE 78; RESP 18; TEMP 99.4
--- NOTE | 2020-09-16 10:08 | P.PN ---
Subjective Progress Note Date: 09/16/20 Postop day #3: Patient feels well. She is an taylor within room and somewhat down the hallway. Her pain is well controlled. Examination revealed the popliteal area wound to be clean, dry and healing normally. The [place] wound VAC is left in place in the right groin. The leg is free of edema, toes are freely movable and nontender. Patient is stable from a surgical standpoint for dismissal from the hospital. She has all necessary needs met at home. She is instructed to follow-up with Dr. Murphy this week in the office and call tomorrow for scheduling of an office appointment. All questions were answered to patient's satisfaction. Patient clearly understands all directions. She was given a prescription for [place] Objective - Vital Signs Vital signs: Vital Signs Temp 99.4 F 09/16/20 08:20 Pulse 78 09/16/20 08:20 Resp 18 09/16/20 08:20 BP 125/75 09/16/20 08:20 Pulse Ox 95 09/16/20 08:20 Intake & Output 09/15/20 09/16/20 09/16/20 18:59 06:59 18:59 Intake Total 358 600 120 Output Total 500 Balance -142 600 120 Weight 89 kg Intake: Oral 358 600 120 Output: Urine 500 Other: Voiding Method Toilet Toilet Toilet # Voids 2 3 - Labs CBC & Chem 7: 09/16/20 06:26 09/16/20 06:26 Labs: Abnormal Lab Results - Last 24 Hours (Table) 09/15/20 09/15/20 09/15/20 Range/Units 12:00 16:45 20:09 MCV (80.0-100.0) fL MCH (25.0-35.0) pg Sodium (137-145) mmol/L Glucose (74-99) mg/dL POC Glucose (mg/dL) 120 H 164 H 159 H (75-99) mg/dL 09/16/20 09/16/20 09/16/20 Range/Units 06:26 06: 06:28 MCV 106.2 H (80.0-100.0) fL MCH 35.5 H (25.0-35.0) pg Sodium 136 L (137-145) mmol/L Glucose 157 H (74-99) mg/dL POC Glucose (mg/dL) 147 H (75-99) mg/dL
--- NOTE | 2020-09-16 10:09 | P.DS ---
Providers Date of admission: 09/13/20 05:52 Expected date of discharge: 09/16/20 Attending physician: Migdalia Murphy, Consults: 09/13/20 13:39 Consult Physician Routine Consulting Provider: Juan M Campoverde Consult Reason/Comments: md keita Do you want consulting provider notified?: Yes Primary care physician: Juan M Campoverde Hospital Course: Patient was admitted to the hospital for revascularization of the right lower extremity. She underwent a right common femoral thromboendarterectomy followed by femoropopliteal bypass graft utilizing CryoVein. The remainder of her hospital course was unremarkable. Patient had a palpable dorsalis pedis pulse at the time of discharge. Procedures: Right common femoral thromboendarterectomy and femoral-popliteal bypass graft utilizing CryoVein Patient Condition at Discharge: Good Plan - Discharge Summary Discharge Rx Participant: No New Discharge Prescriptions: Continue Ibuprofen [Motrin] 800 mg PO Q8HR PRN #12 tab PRN Reason: Pain Atorvastatin [Lipitor] 40 mg PO HS HYDROcodone/APAP 5-325MG [[place] 5-325] 1 tab PO Q8HR PRN PRN Reason: Pain Levothyroxine Sodium [Synthroid] 75 mcg PO DAILY Discharge Medication List Ibuprofen [Motrin] 800 mg PO Q8HR PRN #12 tab 12/29/15 [Rx] Atorvastatin [Lipitor] 40 mg PO HS 07/26/20 [History] HYDROcodone/APAP 5-325MG [[place] 5-325] 1 tab PO Q8HR PRN 08/17/20 [History] Levothyroxine Sodium [Synthroid] 75 mcg PO DAILY 08/17/20 [History] Follow up Appointment(s)/Referral(s): [facility], [NON-STAFF] - Patient Instructions/Handouts: Femoropopliteal Bypass (DC) Activity/Diet/Wound Care/Special Instructions: May shower, keep right lower extremity dry. No heavy lifting greater than 5-10 pounds. Activity as tolerated. Keep wound VAC dressing in place for 7 days. May be removed and discarded in 7 days.
[2020-09-16 11:40] LABS: Glucose,Whole Blood 137 mg/dL (75-99)
--- NOTE | 2020-09-16 14:13 | PN ---
PROGRESS NOTE DATE OF SERVICE: 09/16/2020 HISTORY: This 70-year-old woman was admitted after surgery for peripheral vascular disease, improving significantly. No chest pain. No palpitations. No fever. PHYSICAL EXAMINATION: Alert and oriented. Pulse 78, blood pressure 120/77, respiration 18, temperature 99.2, pulse ox 98% on room air. HEENT: Conjunctivae normal. NECK: No JVD. CARDIOVASCULAR: S1, S2 muffled. RESPIRATION: Breath sounds diminished in the bases, no rhonchi. ABDOMEN: Soft nontender. LEGS: Status post right leg surgery. LABS: MCV 106.2. Sodium is 130. Other labs are noted. ASSESSMENT: 1. Peripheral vascular disease, status post right femoral endarterectomy with patch angioplasty as well as right femoral below-knee popliteal bypass with cryo vein. 2. Diabetes mellitus type 2. 3. Hyponatremia, mild. 4. Degenerative joint disease. 5. Increased MCV. 6. History of pneumonia. 7. History of hypothyroidism. 8. History of back pain. 9. History of peripheral vascular disease. 10.History of cholecystectomy. 11.History of depression. 12.History of nicotine dependence. RECOMMENDATIONS: Continue current management. Otherwise at this time I recommend closely follow with vascular surgery and follow up with Dr. Campoverde after discharge. Resume the home medications. The rest of the recommendations per vascular surgery further recommendations to follow. MMODL / IJN: [id number] /
== END 2020-09-16 13:06 | disposition home health service (06) | DRG 253 ==
LOC: 2ORMAIN 05:52 → 3SCARD 13:33
PROVIDERS: ADMIT Surgery; ATTEND Surgery
DX: I70.211 Atherosclerosis of native arteries of extremities with intermittent claudication, right leg (principal); G45.8 Other transient cerebral ischemic attacks and related syndromes; E87.1 Hypo-osmolality and hyponatremia; E11.51 Type 2 diabetes mellitus with diabetic peripheral angiopathy without gangrene; I65.29 Occlusion and stenosis of unspecified carotid artery; Z20.822 Contact with and (suspected) exposure to COVID-19; K21.9 Gastro-esophageal reflux disease without esophagitis; E03.9 Hypothyroidism, unspecified; M19.90 Unspecified osteoarthritis, unspecified site; M54.30 Sciatica, unspecified side; I83.90 Asymptomatic varicose veins of unspecified lower extremity; F17.210 Nicotine dependence, cigarettes, uncomplicated; Z71.6 Tobacco abuse counseling; Z79.890 Hormone replacement therapy; Z79.899 Other long term (current) drug therapy; Z90.710 Acquired absence of both cervix and uterus; Z90.49 Acquired absence of other specified parts of digestive tract; Z87.19 Personal history of other diseases of the digestive system; Z87.42 Personal history of other diseases of the female genital tract; Z87.448 Personal history of other diseases of urinary system; Z90.89 Acquired absence of other organs; Z87.891 Personal history of nicotine dependence; Z87.01 Personal history of pneumonia (recurrent); Z86.59 Personal history of other mental and behavioral disorders; Z87.39 Personal history of other diseases of the musculoskeletal system and connective tissue; Z98.890 Other specified postprocedural states; Z82.5 Family history of asthma and other chronic lower respiratory diseases; Z83.3 Family history of diabetes mellitus; Z80.3 Family history of malignant neoplasm of breast; Z82.49 Family history of ischemic heart disease and other diseases of the circulatory system; Z91.048 Other nonmedicinal substance allergy status
CPT/HCPCS: 80048; 85027; 86850; 86900; 86901; 87635; 88304; 88311

== ENCOUNTER → 2021-01-01 | Outpatient (CLI) | payer MEDICARE ==
[2021-01-01 12:21] LABS: Basophils # (A) 0.1 k/uL (0-0.2); Basophils % (A) 1 %; Eosinophils # (A) 0.2 k/uL (0-0.7); Eosinophils % (A) 4 %; HCT 48.3 % (34.0-46.0); HGB 16.2 gm/dL (11.4-16.0); Lymphocytes % (A) 31 %; MCH 35.6 pg (25.0-35.0); MCHC 33.5 g/dL (31.0-37.0); MCV 106.4 fL (80.0-100.0); Macrocytosis Moderate; Mean Platelet Volume 7.9; Monocytes # (A) 0.4 k/uL (0-1.0); Monocytes % (A) 6 %; Neutrophils # (A) 3.6 k/uL (1.3-7.7); Neutrophils % (A) 57 %; Platelet Count 231 k/uL (150-450); RBC 4.54 m/uL (3.80-5.40); RDW 13.4 % (11.5-15.5); WBC 6.3 k/uL (3.8-10.6)
[2021-01-01 12:28] LABS: African American GFR (CKD) >90 (>60 ml/min/1.73 sqM); Anion Gap 7 mmol/L; Blood Urea Nitrogen 10 mg/dL (7-17); Carbon Dioxide 21 mmol/L (22-30); Chloride 109 mmol/L (98-107); Non-African American GFR(CKD) >90 (>60 ml/min/1.73 sqM); Potassium 4.5 mmol/L (3.5-5.1); Sodium 137 mmol/L (137-145)
== END | disposition home or self-care (01) ==
LOC: LABPAT 10:59
PROVIDERS: ATTEND Surgery
DX: Z01.812 Encounter for preprocedural laboratory examination (principal); I73.9 Peripheral vascular disease, unspecified
CPT/HCPCS: 36415; 80051; 82565; 84520; 85025

== ENCOUNTER 2021-01-03 08:31 | Day surgery (SDC) | payer MEDICARE ==
[2021-01-01 13:02] VITALS: BMI 32.5
[~2021-01-03 08:31] MED LIST changes: +ALPRAZolam 0.25 MG TAB PO PRN; +ASPIRIN 325 MG TAB PO PRN; -HYDROmorphone 0.5 MG/0.5 ML SYRINGE IVP PRN; -LACTATED RINGERS 1,000 ML IV SCH; -ONDANSETRON 4 MG/2 ML VIAL IVP ONE
[2021-01-03] MEDS ORDERED: SODIUM CHLORIDE 0.9% 1,000 ML IV ONE (08:43)
[2021-01-03 08:56] LABS: Glucose,Whole Blood 153 mg/dL (75-99)
[2021-01-03 09:10] VITALS: RESP 16
[2021-01-03] MEDS ORDERED: LIDOCAINE 1% INJ 10MG/ML (20 ML MDV) ONE (09:34)
[2021-01-03] MEDS ORDERED: fentaNYL (PF) 50 MCG/ML 2 ML AMP ONE (10:42)
[2021-01-03] MEDS: fentaNYL (PF) 50 MCG/ML 2 ML AMP IV ONE ×2 (10:51→11:52)
[2021-01-03] MEDS: MIDAZOLAM 2 MG/2 ML VIAL IV ONE ×2 (10:51→11:29)
[2021-01-03] MEDS ORDERED: LIDOCAINE 1% INJ 10MG/ML (20 ML MDV) SQ ONE (10:53)
[2021-01-03] MEDS ORDERED: HEPARIN SODIUM 1,000 UN/ML (10ML VL) IV ONE (11:09)
[2021-01-03] MEDS ORDERED: HEPARIN SODIUM 1,000 UN/ML (10ML VL) ONE (11:32)
[2021-01-03] MEDS ORDERED: IOPAMIDOL-250 100ML BTL INTRAARTER ONE (12:30)
--- NOTE | 2021-01-03 13:01 | P.OP ---
Date of Procedure: 01/03/21 Description of Procedure: Preoperative diagnosis: Deanna 3 left lower extremity peripheral arterial disease, superficial femoral artery occlusion Postoperative diagnosis: Same Procedure: [#1 ultrasound-guided right common femoral artery access #2 left lower extremity angiogram third order to below-knee popliteal artery #3 left lower extremity superficial femoral artery atherectomy with Hawk M #4 percutaneous transluminal balloon angioplasty with drug-coated balloon 5 x 200, 5 x 1 50 of the superficial femoral artery #5 percutaneous transluminal stent placement 6 x 1 50, 6 x 1 20 ever Flex #6 Right iliofemoral angiogram #7 moderate conscious sedation 110 minutes] Surgeon: Migdalia Murphy D.O. EBL: [Less than 10 mL] IV fluids: [See records] Urine output: [Not measured] Drains: [None] Complications: [None immediately apparent] Condition: [Stable to recovery] Operative indication and findings: [The patient is a 70-year-old female who has significant Deanna 3 peripheral arterial disease. Initially her right leg was her worst, she underwent attempts at endovascular repair but subsequently underwent a right femoral to below-knee bypass with vein. She has been doing well from this standpoint and inquired about getting her left lower extremity revascularization performed. She presents today for this. Risks and benefits were discussed, she seemingly understood and was willing to proceed as such] Procedure in detail: [The patient was taken to the special suite and placed in supine position. The bilateral groins are prepped and draped in usual sterile fashion. A preprocedure timeout was performed, all parties were in agreement. The skin overlying the right common femoral artery was anesthetized and utilizing the ultrasound the common femoral artery was accessed with a micropuncture needle. There was significant scar tissue therefore serial dilation was performed. This was done over a glide advantage stiffer wire. A 6-Panamanian sheath was placed. A right iliofemoral angiogram was performed. The catheters and wires were used access the left iliac system and down into the superficial femoral artery. An angiogram was performed and using the glide advantage wire as well as a quick cross catheter, the lesion was crossed. A confirmatory angiogram was performed in the distal popliteal artery. That point the catheter was removed. The sheath was removed and a long 6-Panamanian sheath was placed over the advantage wire. The catheter was then replaced and a spider, 6-Panamanian distal embolic protection device was placed into the popliteal artery. Using the Iotumk M atherectomy device, superficial femoral artery was atherectomized for the proximal portion as well as the chronic total occlusion. Imaging was performed sequentially. The area was sufficiently atherectomized and then drug-coated balloons were placed, 5 x 205 x 1 50 throughout the superficial femoral artery. An image was performed. At the area where the occlusion was there was an area of dissection where there was contrast hang up therefore was decided to stent. A 6 x 150 stent was placed. Another image was performed showing some disease at the level of the proximal stent therefore another stent was placed 6 x 120. An image was performed showing good brisk flow. There was some disease at the common femoral artery however no evidence of hemodynamic issue. That point attempts were made to take out the spider wire however it did not come through the catheter itself. The portions were removed in total and a follow-up images performed showing no injury to the vessel or areas of dissection. The common femoral artery. Patent, the superficial femoral artery were previous stents were now placed was patent with good flow through. The popliteal artery is patent. The anterior tibial and tibial peroneal trunk was patent, the posterior tibial artery was occluded at its takeoff. Under direct visualization the sheath was then brought back over the bifurcation. Again there was resistance in the right femoral due to chronic scar tissue from her previous interventions and open surgery. Another right iliofemoral angiogram was performed showing good access into the level of the patch with a patent bypass remaining through the thigh as well as the profunda. The sheath was removed and pressure was held until hemostasis was adequate.
[2021-01-03] MEDS ORDERED: CLOPIDOGREL 75 MG TAB ONE (13:04)
[2021-01-03] MEDS ORDERED: SODIUM CHLORIDE 0.9% 1,000 ML in EMPTY BAG 1 BAG IV ONE (13:05)
[2021-01-03] MEDS ORDERED: CLOPIDOGREL 75 MG TAB PO ONE (13:05)
[2021-01-03] MEDS: HYDROcodone/APAP 5-325MG 1 EACH TAB PO PRN ×2 (14:30→21:15)
[2021-01-03] MEDS: NICOTINE 21MG/24HR PATCH TRANSDERM SCH (15:12)
[2021-01-04] MEDS: HYDROcodone/APAP 5-325MG 1 EACH TAB PO PRN ×3 (01:53→13:31)
[2021-01-04] MEDS ORDERED: LEVOTHYROXINE 75 MCG TAB PO SCH (06:30)
[2021-01-04 08:12] VITALS: BP 155/80; PULSE 75; TEMP 97.9
[2021-01-04 08:19] LABS: African American GFR (CKD) >90 (>60 ml/min/1.73 sqM); Non-African American GFR(CKD) >90 (>60 ml/min/1.73 sqM)
[2021-01-04] MEDS: NICOTINE 21MG/24HR PATCH TRANSDERM SCH (08:57)
[2021-01-04] MEDS ORDERED: CLOPIDOGREL 75 MG TAB PO SCH (09:00)
[2021-01-04] MEDS ORDERED: ASPIRIN 81 MG PO SCH (09:00)
--- NOTE | 2021-01-04 11:52 | P.DS ---
Providers Expected date of discharge: 01/04/21 Attending physician: Migdalia Murphy DO Primary care physician: Stated None Hospital Course: This is a 70-year-old female with a history of left lower extremity Deanna 3 peripheral arterial disease, superficial femoral artery occlusion presented for elective left lower extremity angioplasty and stent. She is postop day #14 and left lower extremity angiogram, left lower extremity superficial femoral artery atherectomy with balloon angioplasty of the superficial femoral artery and stent placement. Patient is doing well. Right groin access without any evidence of hematoma, no bleeding. Patient is able to move the left lower extremity. She does have some discomfort from the thigh to the knee. She is able to move and wiggle her toes. His been afebrile. Assessment: Exam: General appearance: The patient is alert, oriented, in no acute distress. HET: Head is normocephalic and atraumatic. Neck: Supple without lymphadenopathy. Trachea midline. Heart: S1 S2. Regular rate and rhythm. Lungs: Clear to auscultation. Abdomen: Soft, nontender, nondistended. Extremities: Normal skin color and turgor. Left lower extremity warm to the touch, good capillary refill with Palpable dorsalis pedis pulse. Right groin access site without any evidence of bleeding or hematoma. Neurological: No focal deficits. Strength and sensation are grossly intact. Assessment: 1. Postop day #1 for left lower extremity angiogram third order to [id number] popliteal artery, superficial femoral artery atherectomy, transluminal balloon angioplasty of the superficial femoral artery with stent placement. 2. [place] 3 left lower extremity peripheral arterial disease 3. Superficial femoral artery occlusion The impression and plan of care has been dictated as directed. Dr. Murphy I performed a history and examination of this patient, discussed the same with the dictator. I agree with the dictator's note ,documented as a scribe. Any additional findings or plans will be noted. Procedures: Left lower extremity angiogram, left lower extremity superficial femoral artery atherectomy with balloon angioplasty and stent placement. Patient Condition at Discharge: Good Plan - Discharge Summary Discharge Rx Participant: No New Discharge Prescriptions: New Clopidogrel [Plavix] 75 mg PO DAILY #30 tab Aspirin 81 mg PO DAILY tab Nicotine 21Mg/24Hr Patch [Habitrol] 1 patch TRANSDERM DAILY patch Continue Ibuprofen [Motrin] 800 mg PO Q8HR PRN #12 tab PRN Reason: Pain Levothyroxine Sodium [Synthroid] 75 mcg PO DAILY Calcium Carbonate [Tums] 500 mg PO QID PRN PRN Reason: Heartburn Discharge Medication List Ibuprofen [Motrin] 800 mg PO Q8HR PRN #12 tab 12/29/15 [Rx] Levothyroxine Sodium [Synthroid] 75 mcg PO DAILY 08/17/20 [History] Calcium Carbonate [Tums] 500 mg PO QID PRN 01/02/21 [History] Aspirin 81 mg PO DAILY tab 01/04/21 [Rx] Clopidogrel [Plavix] 75 mg PO DAILY #30 tab 01/04/21 [Rx] Nicotine 21Mg/24Hr Patch [Habitrol] 1 patch TRANSDERM DAILY patch 01/04/21 [Rx] Follow up Appointment(s)/Referral(s): Migdalia Murphy DO [STAFF PHYSICIAN] - 1 Week Activity/Diet/Wound Care/Special Instructions: No heavy lifting greater than 5-10 pounds. No tub bathing 1 week. Continue with cholesterol medication, aspirin, and Plavix Discharge Disposition: HOME SELF-CARE
--- NOTE | 2021-01-04 12:32 | IR ---
EXAMINATION TYPE: IR stent intravas non coronary DATE OF EXAM: 01/03/2021 COMPARISON: NONE HISTORY: Fluoroscopy time. Fluoroscopy was provided to the referring clinician.
== END 2021-01-04 15:24 | disposition home or self-care (01) ==
LOC: CATHCVL 08:31 → 6NMEDSUR 12:42 → CATHCVL 01-04 15:24
PROVIDERS: ATTEND Surgery
DX: I73.9 Peripheral vascular disease, unspecified (principal); Z79.02 Long term (current) use of antithrombotics/antiplatelets; Z79.82 Long term (current) use of aspirin; Z95.5 Presence of coronary angioplasty implant and graft; Z20.822 Contact with and (suspected) exposure to COVID-19
CPT/HCPCS: 37227; 75716; 82565; 87635; C1894 ×2; C1769 ×3; C1725; C1887; C1714; C1884; C1876 ×2; C2623 ×2; S4990 ×2; J2250; J2001; J3010; J1644; Q9966

== ENCOUNTER 2021-05-24 10:02 | Day surgery (SDC) | payer MEDICARE ==
[2021-05-23 13:57] VITALS: BMI 34.3
[2021-05-24] MEDS ORDERED: SODIUM CHLORIDE 0.9% 1,000 ML IV ONE (10:17)
[2021-05-24 10:46] LABS: Basophils % (A) 1 %; Eosinophils # (A) 0.3 k/uL (0-0.7); Eosinophils % (A) 5 %; HCT 52.7 % (34.0-46.0); HGB 17.3 gm/dL (11.4-16.0); Lymphocytes # (A) 1.9 k/uL (1.0-4.8); Lymphocytes % (A) 29 %; MCH 35.6 pg (25.0-35.0); MCHC 32.9 g/dL (31.0-37.0); MCV 108.2 fL (80.0-100.0); Macrocytosis Moderate; Mean Platelet Volume 8.4; Monocytes # (A) 0.4 k/uL (0-1.0); Monocytes % (A) 6 %; Neutrophils # (A) 3.8 k/uL (1.3-7.7); Neutrophils % (A) 58 %; Platelet Count 195 k/uL (150-450); RBC 4.87 m/uL (3.80-5.40); RDW 12.9 % (11.5-15.5); WBC 6.4 k/uL (3.8-10.6)
[2021-05-24 11:07] LABS: African American GFR (CKD) >90 (>60 ml/min/1.73 sqM); Anion Gap 7 mmol/L; Blood Urea Nitrogen 11 mg/dL (7-17); Calcium 9.4 mg/dL (8.4-10.2); Carbon Dioxide 27 mmol/L (22-30); Chloride 107 mmol/L (98-107); Glucose 198 mg/dL (74-99); Non-African American GFR(CKD) 88 (>60 ml/min/1.73 sqM); Potassium 4.3 mmol/L (3.5-5.1); Sodium 141 mmol/L (137-145)
[2021-05-24] MEDS ORDERED: LIDOCAINE 1% INJ 10MG/ML (20 ML MDV) ONE (12:19)
--- NOTE | 2021-05-24 12:31 | P.HPIHPCON ---
History of Present Illness H&P Date: 05/24/21 Patient is a 71-year-old female who had a right femoral to below-knee popliteal/tibial bypass approximately 9 months ago. She has been seen in surveillance in the office and was doing well. Her most recent visit she did have some decrease in her LUIS EDUARDO however that time it was decided she should go f orward with surveillance imaging. She then presented with worsening pain for the past 3-4 days of her right lower extremity. Ultrasound imaging shows occlusion of her femoral to below-knee popliteal graft. The plan was to come forward with a angiogram possible thrombolysis to try to open the graft itself, if unsuccessful would obtain planning for the next bypass options. Risks and benefits were discussed with the patient. He seemingly understood and is willing to proceed. She continues to smoke and also does admit to a long few days to week of not taking her medications as previously ordered. Consent for Procedure: I have explained the operation/procedure to the patient, including the risks, benefits, side effects, alternative therapies (including not receiving the proposed treatment or service), the likelihood of the patient achieving his/her goals, and potential recuperation problems for the procedure/sedation/analgesia, as well as any blood products, if indicated. I also explained to the patient the risks, benefits and side effects of the alternatives, as well as the risks related to not receiving the proposed procedure, care, treatment, or services. Past Medical History Past Medical History: Diabetes Mellitus, Osteoarthritis (OA), Pneumonia, Syncope, Thyroid Disorder, Vascular Disorder Additional Past Medical History / Comment(s): back pain,varicose veins,sciatica ,new dx diabetes -diet control History of Any Multi-Drug Resistant Organisms: None Reported Past Surgical History: Back Surgery, Bladder Surgery, Cholecystectomy, Hysterectomy, Orthopedic Surgery, Tonsillectomy Additional Past Surgical History / Comment(s): "tummy tuck", angiogram, back surgery for sciatic nerve, thu knee arthroscopy, cyst removed from rt wrist, "left leg stent", "right leg cadaver vein" Past Anesthesia/Blood Transfusion Reactions: No Reported Reaction Past Psychological History: Depression Additional Psychological History / Comment(s): seasonal Smoking Status: Current every day smoker Past Alcohol Use History: Rare Additional Past Alcohol Use History / Comment(s): started smoking at age 16 Past Drug Use History: None Reported - Past Family History Mother Family Medical History: Cancer, Coronary Artery Disease (CAD) Additional Family Medical History / Comment(s): colon and breast,CABG Father Additional Family Medical History / Comment(s): breathing problem Medications and Allergies Home Medications Medication Instructions Recorded Confirmed Type Levothyroxine Sodium [Synthroid] 75 mcg PO DAILY 08/17/20 05/24/21 History Calcium Carbonate [Tums] 500 mg PO QID PRN 01/02/21 05/23/21 History Aspirin 81 mg PO DAILY tab 01/04/21 05/24/21 Rx Clopidogrel [Plavix] 75 mg PO DAILY #30 tab 01/04/21 05/24/21 Rx Atorvastatin [Lipitor] 40 mg PO HS 05/23/21 05/24/21 History Allergies Allergy/AdvReac Type Severity Reaction Status Date / Time nickel Allergy Rash/Hives Verified 05/23/21 13:46 Surgical - Exam Vital Signs Temp Pulse Resp BP Pulse Ox 98.6 F 61 16 208/104 97 05/24/21 10:25 05/24/21 10:25 05/24/21 10:25 05/24/21 10:25 05/24/21 10:25 Genitals a pleasant cooperative female in no acute distress. HEENT is normocephalic, atraumatic, extraocular motion intact. Heart appears regular. Lungs are clear bilaterally. Abdomen is soft, nontender and nondistended. Extremities no clubbing, cyanosis or edema. She has a palpable femoral and do rsalis pedis pulse on the left. She has a palpable femoral pulses are. No palpable pulsation through the graft. The right lower extremity is cool. Motor sensory intact Results - Labs 05/24/21 10:27 05/24/21 10:27 Abnormal Lab Results - Last 24 Hours (Table) 05/24/21 05/24/21 Range/Units 10:27 10:27 Hgb 17.3 H (11.4-16.0) gm/dL Hct 52.7 H (34.0-46.0) % MCV 108.2 H (80.0-100.0) fL MCH 35.6 H (25.0-35.0) pg Glucose 198 H (74-99) mg/dL Diabetes panel 05/24/21 Range/Units 10:27 Sodium 141 (137-145) mmol/L Potassium 4.3 (3.5-5.1) mmol/L Chloride 107 (98-107) mmol/L Carbon Dioxide 27 (22-30) mmol/L BUN 11 (7-17) mg/dL Creatinine 0.69 (0.52-1.04) mg/dL Glucose 198 H (74-99) mg/dL Calcium 9.4 (8.4-10.2) mg/dL Calcium panel 05/24/21 Range/Units 10:27 Calcium 9.4 (8.4-10.2) mg/dL Pituitary panel 05/24/21 Range/Units 10:27 Sodium 141 (137-145) mmol/L Potassium 4.3 (3.5-5.1) mmol/L Chloride 107 (98-107) mmol/L Carbon Dioxide 27 (22-30) mmol/L BUN 11 (7-17) mg/dL Creatinine 0.69 (0.52-1.04) mg/dL Glucose 198 H (74-99) mg/dL Calcium 9.4 (8.4-10.2) mg/dL Adrenal panel 05/24/21 Range/Units 10:27 Sodium 141 (137-145) mmol/L Potassium 4.3 (3.5-5.1) mmol/L Chloride 107 (98-107) mmol/L Carbon Dioxide 27 (22-30) mmol/L BUN 11 (7-17) mg/dL Creatinine 0.69 (0.52-1.04) mg/dL Glucose 198 H (74-99) mg/dL Calcium 9.4 (8.4-10.2) mg/dL Assessment and Plan Assessment: Thrombosed right lower extremity bypass graft Peripheral arterial disease Tobacco abuse Plan: We will plan to take the patient today for an angiogram with possible throm bolysis versus planning for future bypass if unable to cross the bypass
[2021-05-24] MEDS ORDERED: MIDAZOLAM 2 MG/2 ML VIAL IV ONE (12:33)
[2021-05-24] MEDS ORDERED: fentaNYL (PF) 50 MCG/ML 2 ML AMP ONE (12:33)
[2021-05-24] MEDS ORDERED: fentaNYL (PF) 50 MCG/ML 2 ML AMP IV ONE (12:38)
[2021-05-24] MEDS ORDERED: LIDOCAINE 1% INJ 10MG/ML (20 ML MDV) SQ ONE (12:42)
[2021-05-24] MEDS ORDERED: IOPAMIDOL-250 100ML BTL INTRAARTER ONE (13:10)
--- NOTE | 2021-05-24 13:57 | P.OP ---
Date of Procedure: 05/24/21 Description of Procedure: Preoperative diagnosis: [Right lower extremity critical limb ischemia, rest pain, previous right femoral to below-knee popliteal bypass,, occluded bypass] Postoperative diagnosis: Same Procedure: [#1 ultrasound guided left common femoral artery access #2 left iliofemoral angiogram #3 right iliofemoral angiogram #4 moderate conscious sedation 33 minutes] Surgeon: Migdalia Murphy D.O. EBL: [Less than 10 mL] IV fluids: [See records] Urine output: [Not measured] Drains: [None] Complications: [None immediately apparent] Condition: [Stable to recovery] Operative indication and findings: [Patient is a 71-year-old female who previous and underwent a right femoral to below-knee popliteal bypass with CryoVein. A few days previously she had increasing pain and coolness in her right lower extremity. She underwent imaging which revealed an occluded bypass graft therefore she is brought to the Loss Control Consultant today for possible interventions.] Procedure in detail: [Patient was taken to the special suite and placed in supine position. Bilateral groins are prepped and draped in usual sterile fashion. A preprocedure timeout was performed, all parties are in agreement. Using ultrasound the left common femoral artery was identified. The skin overlying was anesthetized with 1% lidocaine plain. Using a micropuncture needle the left common femoral artery was accessed and Seldinger technique was used to place a 5-Persian sheath. A left iliofemoral angiogram was performed revealing widely patent femoral, external and common iliac arteries with the distal aorta area Catheters and wires were used to access the right lower extremity and an iliofemoral angiogram was performed. The common iliac, external iliac were patent without significant disease. The common femoral showed evidence of surgical changes from the endarterectomy. The profunda appeared patent. There was no evidence of flow to even the proximal bypass graft. Attempts were made to try to identify this folks were unsuccessful in multiple views. A further imaged on the lower extremity was obtained showing reconstitution of the popliteal artery just below the knee. The anterior tibial artery is a high takeoff. The tibial peroneal trunk is patent. There is difficult visualization due to decreased opacification but there appeared to be 3 vessels. Patient will need repeat femoral to tibial bypass for rest pain Plan - Discharge Summary Discharge Rx Participant: No New Discharge Prescriptions: No Action Levothyroxine Sodium [Synthroid] 75 mcg PO DAILY Calcium Carbonate [Tums] 500 mg PO QID PRN PRN Reason: Heartburn Clopidogrel [Plavix] 75 mg PO DAILY #30 tab Aspirin 81 mg PO DAILY tab Atorvastatin [Lipitor] 40 mg PO HS Discharge Medication List Levothyroxine Sodium [Synthroid] 75 mcg PO DAILY 08/17/20 [History] Calcium Carbonate [Tums] 500 mg PO QID PRN 01/02/21 [History] Aspirin 81 mg PO DAILY tab 01/04/21 [Rx] Clopidogrel [Plavix] 75 mg PO DAILY #30 tab 01/04/21 [Rx] Atorvastatin [Lipitor] 40 mg PO HS 05/23/21 [History] Activity/Diet/Wound Care/Special Instructions: Hold plavix until surgery. Will be planning for femoral to tibial bypass endoscope technician iously late next week hopeful patient will be able to see primary care physician in the meantime however she denies any angina or exertional dyspnea. Discharge Disposition: HOME SELF-CARE
--- NOTE | 2021-05-24 14:18 | IR ---
Fluoroscopy HISTORY: Pain in right leg 9 minutes fluoroscopy time supplied to the referring clinician. 206 intraoperative C-arm images docu ment the procedure. See dictated report from vascular surgery.
[2021-05-24] MEDS ORDERED: ACETAMINOPHEN TAB 325 MG TAB PO PRN (16:06)
[2021-05-24 17:36] VITALS: RESP 16; TEMP 98.6
[2021-05-24 19:32] VITALS: BP 150/74; PULSE 52
== END 2021-05-24 20:05 | disposition home or self-care (01) ==
LOC: CATHCVL 10:02 → 6NMEDSUR 13:13 → CATHCVL 20:05
PROVIDERS: ATTEND Surgery
DX: T82.868A Thrombosis due to vascular prosthetic devices, implants and grafts, initial encounter (principal); F17.200 Nicotine dependence, unspecified, uncomplicated; F32.A Depression, unspecified; E11.51 Type 2 diabetes mellitus with diabetic peripheral angiopathy without gangrene; Z87.01 Personal history of pneumonia (recurrent); E07.9 Disorder of thyroid, unspecified; I83.90 Asymptomatic varicose veins of unspecified lower extremity; M54.30 Sciatica, unspecified side; Z98.890 Other specified postprocedural states; Z90.49 Acquired absence of other specified parts of digestive tract; Z90.710 Acquired absence of both cervix and uterus; Z82.5 Family history of asthma and other chronic lower respiratory diseases; Z82.49 Family history of ischemic heart disease and other diseases of the circulatory system; Z80.0 Family history of malignant neoplasm of digestive organs; Z80.3 Family history of malignant neoplasm of breast; Z83.3 Family history of diabetes mellitus; Z79.02 Long term (current) use of antithrombotics/antiplatelets; Z79.82 Long term (current) use of aspirin; Z79.890 Hormone replacement therapy; Z79.899 Other long term (current) drug therapy; Z91.09 Other allergy status, other than to drugs and biological substances
CPT/HCPCS: 36245; 75716; 76937; 80048; 85025; C1769 ×4; C1894; J2250; J2001; J3010; Q9966

== ENCOUNTER → 2021-09-24 | Outpatient (CLI) | payer MEDICARE ==
[2021-09-24 13:55] LABS: African American GFR (CKD) >90 (>60 ml/min/1.73 sqM); Blood Urea Nitrogen 10 mg/dL (7-17); Non-African American GFR(CKD) >90 (>60 ml/min/1.73 sqM)
--- NOTE | 2021-09-24 16:30 | CT ---
EXAMINATION TYPE: CT angio abd aorta w/Runoff DATE OF EXAM: 09/24/2021 COMPARISON: HISTORY: RT leg numbness. Hx of stent left leg. CT DLP: 2352.2 mGycm EXAMINATION TYPE: CT angio abd aorta w/Runoff DATE OF EXAM: 09/24/2021 COMPARISON: HISTORY: RT leg numbness. Hx of stent left leg. CT DLP: 2352.2 mGycm CONTRAST: CTA thoracic and abdominal aorta with 3-D reconstruction is performed and without and with IV Contras t, patient injected with 125 ML mL of Isovue 370. Contrast CTA of the abdominal aorta with runoff of the lower extremity arterial system was performed from the lung bases through the ankles and feet. 3-D reconstruction imaging obtained at a separate wo rkstation. ABDOMINAL AORTA: Abdominal aorta is of normal caliber without evidence for aneurysm. Scattered ather omatous changes noted. Renal arteries, SMA, celiac artery and LUZ MARINA are patent. Renal artery calcificat ions noted. Iliac vessels: Common iliac arteries are patent bilaterally. There is diffuse plaque formation noted bilaterally of the bilateral common iliac arteries without hemodynamically significant stenosis. Ther e is high-grade stenosis noted to involve the proximal right external iliac artery with stenosis of g reater than 90%. The left external iliac artery as well as the bilateral internal iliac arteries are patent. Femoral/Popliteal/below the knee arteries: There is a left superficial femoral artery bypass graft wh ich is patent. There is occlusion of the right superficial femoral artery just distal to the right pr ofunda femoris. There is reconstitution just proximal to the anterior tibial artery. Greater than 70% stenosis is noted just proximal to the tibial peroneal trunk. There is opacification of the anterior tibial, peroneal artery and posterior tibial artery. On the left normal appearing popliteal artery. There is nonvisualization of the left anterior tibial artery. Posterior tibial artery and peroneal ar teries are patent. Limited runoff of the ankles and feet given timing of the contrast bolus. LIVER/GB-pack steatosis. The gallbladder surgically absent. PANCREAS- No significant abnormality is seen. SPLEEN- No significant abnormality is seen. ADRENALS- No significant abnormality is seen. KIDNEYS/BLADDER-renal cystic changes. BOWEL- No Significant abnormality GENITAL ORGANS: No gross abnormality seen. LYMPH NODES- No greater than 1cm abdominal or pelvic lymph nodes are appreciated. OSSEOUS STRUCTURES- No significant abnormality is seen. OTHER- No significant abnormality is seen. IMPRESSION- 1. Right SFA occlusion with reconstitution just proximal to the anterior tibial artery. 2. Additional greater than 70% stenosis just proximal to the tibial peroneal trunk.
== END | disposition home or self-care (01) ==
LOC: RADCTMAIN 13:03
PROVIDERS: ATTEND Surgery
DX: I73.9 Peripheral vascular disease, unspecified (principal)
CPT/HCPCS: 82565; 84520; 75635; 36415; Q9967

== ENCOUNTER → 2021-11-01 | Day surgery (SDC) | payer MEDICARE ==
[2021-10-29 16:16] VITALS: BMI 32.8
[~2021-11-01] MED LIST changes: +ACETAMINOPHEN TAB 500 MG TAB PO ONE; +ALPRAZolam 0.5 MG TAB PO PRN; +HEPARIN SODIUM 1,000 UN/ML (10ML VL) ONE; +HEPARIN SODIUM,PORCINE 10,000 UNIT in SODIUM CHLORIDE 0.9% 1,000 ML IRRIGATION PRN; +HEPARIN SODIUM,PORCINE 2,500 UNIT in SODIUM CHLORIDE 0.9% 250 ML IRRIGATION PRN; +IOPAMIDOL-250 100ML BTL INTRAARTER ONE; +LIDOCAINE 1% INJ 10MG/ML (30 ML VIAL-PF) SQ ONE; +MIDAZOLAM 2 MG/2 ML VIAL IV ONE; +SODIUM CHLORIDE 0.9% 1,000 ML IV ONE; +ZOLPIDEM 5 MG TAB PO PRN; +fentaNYL (PF) 50 MCG/ML 2 ML AMP IV ONE; +fentaNYL (PF) 50 MCG/ML 2 ML AMP ONE
[2021-11-01 06:40] LABS: Basophils % (A) 0 %; Eosinophils # (A) 0.3 k/uL (0-0.7); Eosinophils % (A) 3 %; HCT 49.7 % (34.0-46.0); Lymphocytes # (A) 1.8 k/uL (1.0-4.8); Lymphocytes % (A) 20 %; MCH 34.2 pg (25.0-35.0); MCHC 32.2 g/dL (31.0-37.0); Macrocytosis Moderate; Mean Platelet Volume 8.1; Monocytes # (A) 0.5 k/uL (0-1.0); Monocytes % (A) 5 %; Neutrophils # (A) 6.3 k/uL (1.3-7.7); Neutrophils % (A) 70 %; Platelet Count 229 k/uL (150-450); RBC 4.69 m/uL (3.80-5.40); RDW 13.3 % (11.5-15.5)
[2021-11-01 06:42] VITALS: RESP 16; TEMP 98.3
[2021-11-01 06:57] LABS: African American GFR (CKD) >90 (>60 ml/min/1.73 sqM); Anion Gap 8 mmol/L; Blood Urea Nitrogen 10 mg/dL (7-17); Calcium 8.8 mg/dL (8.4-10.2); Carbon Dioxide 22 mmol/L (22-30); Chloride 106 mmol/L (98-107); Glucose 272 mg/dL (74-99); Non-African American GFR(CKD) 90 (>60 ml/min/1.73 sqM); Potassium 3.8 mmol/L (3.5-5.1); Sodium 136 mmol/L (137-145)
--- NOTE | 2021-11-01 09:10 | P.OP ---
Date of Procedure: 11/01/21 Description of Procedure: Preoperative diagnosis: [Right lower extremity peripheral arterial disease, rest pain, right external iliac stenosis] Postoperative diagnosis: Same, 95% stenosis of the right external iliac artery Procedure: [1 ultrasound guided left common femoral artery access #2 left iliofemoral angiogram #3 selective right lower extremity angiogram second order common femoral artery with interpretation #4 percutaneous transluminal balloon angioplasty right external iliac artery 6 x 40 balloon #516 transluminal stent was over PTX 7 x 40 right external iliac artery #6 left lower extremity angiogram with interpretation #7 moderate conscious sedation time 42 minutes Surgeon: Migdalia Murphy D.O. EBL: [Less than 5 mL] IV fluids: [See records] Urine output: [Not measured] Drains: None] Complications: [None immediately apparent] Condition: [Stable] Operative indication and findings: [Patient is a 71-year-old female is undergone multiple vascular interventions who presented again with right lower extremity pain at rest. She has an occluded femoral to below-knee popliteal bypass as we ll as a an occluded femoral to tibial bypass. She underwent a CT angiogram which did show high-grade stenosis of his right external iliac artery therefore she is here today for intervention regarding this.] Procedure in detail: [Patient seen in the upper suite and placed in supine position. The bilateral groins prepped and draped in usual sterile fashion. A preprocedure timeout was performed, all parties are in agreement. Using ultrasound, the left common femoral artery was identified. The skin overlying was anesthetized 1% lidocaine plain. The micropuncture needle was used and the common femoral artery was accessed. Seldinger technique disease with 6-Ukrainian sheath. A left iliofemoral angiogram was performed. Up & Over catheters were used access the right common iliac artery the right lower extremity injury and was performed revealing high-grade right external iliac artery stenosis just distal to the takeoff of the internal iliac artery. Using catheters and wires, this lesion was crossed. A right lower extremity angiogram via the common femoral artery was obtained. The common femoral artery and previous patch angioplasty is patent without significant disease. Profunda is widely patent and robust. Collateral flow gives reconstitution of the posterior tibial and peroneal arteries at the bifurcation of the vessels. There is very late filling of the anterior tibial artery attention was then turned back to the external iliac artery. A 6 x 40 balloon angioplasty was performed with significant improvement. That point decided though even the location and appearance of the initial concern to go forward with placement of a is over PTX stent. A 7 x 40 stent was utilized. It was deployed in standard fashion and post dilation was performed with significant resolution of the stenosis. Prior to intervention on the stenosis, pressures were obtained. Pressure at the right common iliac artery pressure is approximately 150mmhg. The pressure distal to the lesion was approximately 55mmhg, post pressures were equal in the 150s. Attention was then turned towards the left lower extremity, catheters and wires with drawn. A left lower extremity angiogram was performed via the catheter in the left external iliac artery. There appeared to be modest stenosis of the left common femoral artery just distal to the access site. The profunda appeared widely patent. The superficial femoral artery appeared widely patent as well to the stenting from the superficial femoral artery. There is some degree of mild stenosis at the popliteal artery on the left however flow appears adequate and washers through quickly. The anterior tibial artery appears patent with mild disease throughout. The TP trunk and what appears to peroneal artery are patent. There was no visualization of the posterior tibial artery The sheath was removed and manual pressure was held until hemostasis was adequate] Plan - Discharge Summary Discharge Rx Participant: No New Discharge Prescriptions: No Action Calcium Carbonate [Tums] 500 mg PO QID PRN PRN Reason: Heartburn Clopidogrel [Plavix] 75 mg PO DAILY #30 tab cilostazoL [Pletal] 100 mg PO BID Gabapentin [Neurontin] 300 mg PO DAILY Aspirin 81 mg PO DAILY tab Atorvastatin [Lipitor] 20 mg PO HS Ibuprofen [Motrin] 800 mg PO Q8H PRN PRN Reason: Pain Levothyroxine Sodium 88 mcg PO DAILY Discharge Medication List Calcium Carbonate [Tums] 500 mg PO QID PRN 01/02/21 [History] Aspirin 81 mg PO DAILY tab 01/04/21 [Rx] Clopidogrel [Plavix] 75 mg PO DAILY #30 tab 01/04/21 [Rx] Atorvastatin [Lipitor] 20 mg PO HS 05/23/21 [History] Gabapentin [Neurontin] 300 mg PO DAILY 10/29/21 [History] Ibuprofen [Motrin] 800 mg PO Q8H PRN 10/29/21 [History] Levothyroxine Sodium 88 mcg PO DAILY 10/29/21 [History] cilostazoL [Pletal] 100 mg PO BID 10/29/21 [History] Follow up Appointment(s)/Referral(s): Migdalia Murphy DO [STAFF PHYSICIAN] - 1 Week Activity/Diet/Wound Care/Special Instructions: May shower starting tomorrow. No heavy lifting. Continue aspirin, Plavix and statin medications, quit smoking. Discussion had with family regarding patient's elevated blood sugar. Recommend evaluation and follow-up with primary care physician. Discharge Disposition: HOME SELF-CARE
--- NOTE | 2021-11-01 09:34 | IR ---
EXAMINATION TYPE: IR stent intravas non coronary DATE OF EXAM: 11/01/2021 COMPARISON: NONE HISTORY: Fluoroscopy time. Fluoroscopy was provided to the referring clinician.
[2021-11-01 15:24] VITALS: BP 158/78; PULSE 67
== END | disposition home or self-care (01) ==
LOC: CATHCVL 05:59
PROVIDERS: ATTEND Surgery
DX: E11.51 Type 2 diabetes mellitus with diabetic peripheral angiopathy without gangrene (principal); I70.221 Atherosclerosis of native arteries of extremities with rest pain, right leg; T82.868A Thrombosis due to vascular prosthetic devices, implants and grafts, initial encounter
CPT/HCPCS: 37221; 75710; 80048; 85025; C1769 ×5; C1894 ×2; C1725; C1874; J2250; J2001; J3010; Q9966

== ENCOUNTER → 2021-11-15 | Outpatient (CLI) | payer MEDICARE ==
--- NOTE | 2021-11-15 13:55 | XR ---
Right shoulder HISTORY: M 25.811, bone spur 3 views the right shoulder, no comparisons Acromial clavicular joint shows arthropathy. There may be distal acromial spur. No fracture or disloc ation. Bone mineralization, joint spaces and alignment are maintained. Right lung apex as visualized is normal. IMPRESSION: Acromioclavicular joint arthropathy, correlate for shoulder impingement.
== END | disposition home or self-care (01) ==
LOC: RADXRMAIN 12:51
PROVIDERS: ATTEND Nurse Practitioner Adult Health
DX: M12.811 Other specific arthropathies, not elsewhere classified, right shoulder (principal)

== ENCOUNTER 2023-10-17 21:50 | Emergency (ER) | payer MEDICARE ==
[2023-10-17 21:57] VITALS: RESP 18
[2023-10-18] MEDS: IBUPROFEN 400 MG TAB PO STA (00:50)
[2023-10-18] MEDS: ACETAMINOPHEN TAB 325 MG TAB PO STA (00:51)
[2023-10-18] MEDS: DIPH,PERTUS(ACELL)TETVAC-LF 0.5 ML VIAL IM ONE (00:52)
--- NOTE | 2023-10-18 01:40 | ED ---
Wound/Laceration HPI - General Chief Complaint: Wound/Laceration Stated Complaint: Arm laceration Time Seen by Provider: 10/18/23 00:20 Source: patient Mode of arrival: ambulatory Limitations: no limitations - History of Present Illness Initial Comments: 73-year-old female presenting with chief complaint of laceration to the left forearm. She was cutting down a tree branch when a small part of the branch scratched her forearm. She does not know when her last tetanus shot was she has a small skin avulsion to the dorsal surface of the left forearm. No other injuries. She has full range of motion of the arm with no numbness tingling or weakness. - Related Data Home Medications Medication Instructions Recorded Confirmed Calcium Carbonate [Tums] 500 mg PO QID PRN 01/02/21 10/29/21 Atorvastatin [Lipitor] 20 mg PO HS 05/23/21 11/01/21 Gabapentin [Neurontin] 300 mg PO DAILY 10/29/21 11/01/21 Ibuprofen [Motrin] 800 mg PO Q8H PRN 10/29/21 11/01/21 Levothyroxine Sodium 88 mcg PO DAILY 10/29/21 11/01/21 cilostazoL [Pletal] 100 mg PO BID 10/29/21 11/01/21 Previous Rx's Medication Instructions Recorded Aspirin 81 mg PO DAILY tab 01/04/21 Clopidogrel [Plavix] 75 mg PO DAILY #30 tab 01/04/21 Allergies Allergy/AdvReac Type Severity Reaction Status Date / Time nickel Allergy Rash/Hives Verified 10/17/23 21:57 Review of Systems ROS Statement: Those systems with pertinent positive or pertinent negative responses have been documented in the HPI. ROS Other: All systems not noted in ROS Statement are negative. Past Medical History Past Medical History: Diabetes Mellitus, Hyperlipidemia, Hypertension, Osteoarthritis (OA), Pneumonia, Syncope, Thyroid Disorder, Vascular Disorder Additional Past Medical History / Comment(s): back pain,varicose veins,sciatica,new dx diabetes -diet control History of Any Multi-Drug Resistant Organisms: None Reported Past Surgical History: Back Surgery, Bladder Surgery, Cholecystectomy, Hysterectomy, Orthopedic Surgery, Tonsillectomy Additional Past Surgical History / Comment(s): "tummy tuck", angiogram, back surgery for sciatic nerve, thu knee arthroscopy, cyst removed from rt wrist, "left leg stent", "right leg cadaver vein" Past Anesthesia/Blood Transfusion Reactions: No Reported Reaction Past Psychological History: Depression Smoking Status: Current every day smoker - Past Family History Mother Family Medical History: Cancer, Coronary Artery Disease (CAD) Additional Family Medical History / Comment(s): colon and breast,CABG Father Additional Family Medical History / Comment(s): breathing problem General Exam Limitations: no limitations General appearance: alert, in no apparent distress Head exam: Present: atraumatic, normocephalic Eye exam: Present: normal appearance, EOMI Neck exam: Present: normal inspection. Absent: meningismus Respiratory exam: Absent: respiratory distress Cardiovascular Exam: Present: regular rate Left Forearm Wrist exam: Present: full ROM, abrasion Vascular: Absent: vascular compromise Neurological exam: Present: alert, oriented X3 Psychiatric exam: Present: normal affect, normal mood Skin exam: Present: abrasion Course Vital Signs 10/17/23 10/18/23 21:54 01:58 Temperature 97.9 F 98.4 F Pulse Rate 84 67 Respiratory 18 18 Rate Blood Pressure 178/77 157/69 O2 Sat by Pulse 97 99 Oximetry Medical Decision Making - Medical Decision Making Was pt. sent in by a medical professional or institution (, PA, HAND BUTTON SPLITTER, urgent care, hospital, or custodial...) When possible be specific @ -No Did you speak to anyone other than the patient for history (EMS, parent, family, police, friend...)? What history was obtained from this source @ -No Did you review nursing and triage notes (agree or disagree)? Why? @ -I reviewed and agree with nursing and triage notes Were old charts reviewed (outside hosp., previous admission, EMS record, old EKG, old radiological studies, urgent care reports/EKG's, custodial records)? Report findings @ -No old charts were reviewed Differential Diagnosis (chest pain, altered mental status, abdominal pain women, abdominal pain men, vaginal bleeding, weakness, fever, dyspnea, syncope, headache, dizziness, GI bleed, back pain, seizure, CVA, palpatations, mental health, musculoskeletal)? @ -Differential Musculoskeletal Muscular strain, contusion, ligament sprain, fracture, arthritis, septic arthritis, bursitis, cellulitis, muscle spasm, nerve compression, DVT, arterial occlusion, herpes zoster, electrolyte abnormality, tumor.... This is not meant to be in all inclusive list EKG interpreted by me (3pts min.). @ -As above X-rays interpreted by me (1pt min.). @ -None done CT interpreted by me (1pt min.). @ -None done U/S interpreted by me (1pt. min.). @ -None done What testing was considered but not performed or refused? (CT, X-rays, U/S, labs)? Why? @ -X-ray was initially ordered, however the patient does not want an x-ray performed. She states that she is having no pain at the site of the pain surrounding her abrasion and she has full range of motion of the arm, she does not believe she needs an x-ray What meds were considered but not given or refused? Why? @ -None Did you discuss the management of the patient with other professionals (professionals i.e. , PA, HAND BUTTON SPLITTER, lab, RT, psych nurse, social insurance specialist, student success counselor, teacher, probation officer, case worker)? Give summary @ -No Was smoking cessation discussed for >3mins.? @ -No Was critical care preformed (if so, how long)? @ -No Were there social determinants of health that impacted care today? How? (Homelessness, low income, unemployed, alcoholism, drug addiction, transportation, low edu. Level, literacy, decrease access to med. care, detention, rehab)? @ -No Was there de-escalation of care discussed even if they declined (Discuss DNR or withdrawal of care, Hospice)? DNR status @ -No What co-morbidities impacted this encounter? (DM, HTN, Smoking, COPD, CAD, Cancer, CVA, ARF, Chemo, Hep., AIDS, mental health diagnosis, sleep apnea, morbid obesity)? @ -None Was patient admitted / discharged? Hospital course, mention meds given and route, prescriptions, significant lab abnormalities, going to OR and other pertinent info. @ -73-year-old female presenting chief complaint of abrasions to the left forearm while cutting down a tree today. Her tetanus is updated. Gelfoam was applied to the area after the area was cleansed. The area is wrapped and she is educated on wound care and signs of infection. Discharged. Follow-up with PCP. Report back to ER with any new or worsening symptoms. Discussed return parameters and answered all questions. Patient conveyed verbal understanding and agreed to the plan. I discussed this case in detail with my attending Dr. Gallegos Undiagnosed new problem with uncertain prognosis? @ -No Drug Therapy requiring intensive monitoring for toxicity (Heparin, Nitro, Insulin, Cardizem)? @ -No Were any procedures done? @ -No Diagnosis/symptom? @ -Skin avulsion Acute, or Chronic, or Acute on Chronic? @ -Acute Uncomplicated (without systemic symptoms) or Complicated (systemic symptoms)? @ -Uncomplicated Side effects of treatment? @ -No Exacerbation, Progression, or Severe Exacerbation? @ -No Poses a threat to life or bodily function? How? (Chest pain, [place], [place], pneumonia, PE, COPD, DKA, ARF, appy, cholecystitis, CVA, Diverticulitis, Homicidal, Suicidal, threat to staff... and all critical care pts) @ -No Disposition Clinical Impression: Laceration Disposition: HOME SELF-CARE Condition: Good Instructions (If sedation given, give patient instructions): Laceration (ED) Additional Instructions: Follow-up with PCP. Report back to ER with any new or worsening symptoms. Keep the wound clean dry and covered. You may remove the foam in 3 days. Is patient prescribed a controlled substance at d/c from ED?: No Referrals: Juan M Campoverde DO [Primary Care Provider] - 1-2 days Time of Disposition: 01:40
[2023-10-18 02:00] VITALS: BP 157/69; PULSE 67; TEMP 98.4
== END 2023-10-18 02:00 | disposition home or self-care (01) ==
LOC: EC 21:50
DX: S51.812A Laceration without foreign body of left forearm, initial encounter (principal); F17.200 Nicotine dependence, unspecified, uncomplicated; Z91.018 Allergy to other foods; Z23 Encounter for immunization; W22.8XXA Striking against or struck by other objects, initial encounter
CPT/HCPCS: 90471; 90715; 99283